=== PATIENT | male | born 1970 | race Caucasian/White ===

== ENCOUNTER 2020-09-26 07:23 | Emergency (ER) | payer SELFPAY ==
[2020-09-26] MEDS ORDERED: Ibuprofen 800 MG TAB ONE (07:52)
--- NOTE | 2020-09-26 07:53 | RAD ---
Exam: Right ankle 3 views: HISTORY: Pain COMPARISON: None FINDINGS: Multiple surgical clips in the soft tissues of the lower leg and upper ankle region. Degenerative and minimal osteoarthrosis changes of the ankle joint. No evidence for fracture, dislocation, or other significant acute osseous abnormality. IMPRESSION: No significant acute process.
--- NOTE | 2020-09-26 09:40 | ULT ---
RIGHT LOWER EXTREMITY VENOUS DUPLEX STUDY: Date; 09/26/2020 INDICATION: Right lower extremity pain and edema. FINDINGS: Deep veins of right lower extremity evaluated with ultrasound and Doppler, with color Doppler and spe ctral analysis. Deep veins of the right lower extremity show normal blood flow and compression. No evidence of deep v enous thrombosis. IMPRESSION: No evidence of right lower extremity deep venous thrombosis. POS: AGW
== END 2020-09-26 09:58 | disposition home or self-care (01) ==
LOC: ERS 07:23 → EEVIPCON 07:23 → ERS 09:58
DX: M10.9 Gout, unspecified (principal); I87.8 Other specified disorders of veins

== ENCOUNTER 2020-12-06 02:58 | Inpatient (IN) | payer SELFPAY ==
[2020-12-06] MEDS ORDERED: Lorazepam 2 MG/ML VIAL ONE (03:40)
[2020-12-06] MEDS ORDERED: Multivitamins, Adult 10 ML, Thiamine HCl 100 MG, Folic Acid 1 MG in Dextrose 5 %-0.45 %... IV SCH (04:00)
[2020-12-06 04:28] LABS: #Eosinphils 0.1 thou/uL (0.0-0.7); #Lymphocytes 2.1 thou/uL (1.20-3.40); #Monocytes 0.6 thou/uL (0.11-0.59); #Neutrophils 11.8 thou/uL (1.40-6.50); %Basophils 0.2 % (0.0-1.0); %Eosinophils 0.8 % (0.0-10.0); %Lymphocytes 14.2 % (21.0-51.0); %Monocytes 3.8 % (0.0-10.0); %Neutrophils 81.1 % (42.0-75.0); Hemoglobin 14.4 g/dL (14.0-18.0); Mean Corpuscular Hemoglobin 31.8 pg (27.0-31.0); Mean Corpuscular Volume 93.7 fL (78.0-98.0); Mean Platelet Volume 8.3 fL (7.4-10.4); Platelet Count 261 thou/uL (130-400); RBC Distribution Width 13.4 % (11.5-14.5); Red Blood Cell (RBC) Count 4.52 mill/uL (4.70-6.10); White Blood Cell (WBC) Count 14.6 thou/uL (4.8-10.8)
[2020-12-06 04:50] LABS: ALT (SGPT) Less than 7 U/L (8-55); AST (SGOT) 15 U/L (5-34); Alcohol 13 mg/dL (Less than 10); Alkaline Phosphatase 106 U/L (40-110); Anion Gap 19 mmol/L (10-20); BUN (Urea Nitrogen) 8 mg/dL (8.4-25.7); Bilirubin, Total 0.4 mg/dL (0.2-1.2); CK (CPK) 95 U/L (30-200); Calc. Creatinine Clearance 0 mL/min (70-130); Calcium 9.7 mg/dL (7.8-10.44); Carbon Dioxide 24 mmol/L (22-29); Chloride 99 mmol/L (98-107); Globulin 4.6 g/dL (2.4-3.5); Glucose 99 mg/dL (70-105); Potassium 4.8 mmol/L (3.5-5.1); Protein, Total 8.6 g/dL (6.0-8.3); Sodium 137 mmol/L (136-145)
[2020-12-06] MEDS ORDERED: Acetaminophen 500 MG TAB ONE (05:54)
[2020-12-06] MEDS ORDERED: Bacitracin 1 PK ONE (05:55)
[2020-12-06] MEDS ORDERED: Lorazepam 2 MG/ML VIAL SLOW IVP PRN (06:36)
[2020-12-06] MEDS ORDERED: chlordiazePOXIDE HCl 25 MG CAP ONE (06:40)
--- NOTE | 2020-12-06 07:27 | CT ---
PRELIMINARY REPORT/[facility]/EMERGENCY AFTER HOURS PROCEDURE: EXAM: CT Head Without Intravenous Contrast. CLINICAL HISTORY: Patient presents following a possible seizure at home. He reports that he remembers waking up to go to the bathroom. He remembers, he was laying on the kitchen floor with his roommate standing over him saying that he was "flopping all over the place." TECHNIQUE: Axial computed tomography images of the head/brain without intravenous contrast. COMPARISON: None provided. FINDINGS: BRAIN: No acute intraparenchymal hemorrhage. No mass lesion. No CT evidence for acute territorial inf arct. No midline shift or extra-axial collection. VENTRICLES: No hydrocephalus. ORBITS: The orbits are unremarkable. SINUSES AND MASTOIDS: The paranasal sinuses and mastoid air cells are clear. SOFT TISSUES: No significant facial or scalp soft tissue swelling evident. No radiopaque foreign body is seen. BONES: No acute skull fracture. IMPRESSION: No acute intracranial abnormality. ELECTRONICALLY SIGNED BY: Quincy Rios MD Dec 06, 2020 4:17:20 AM LITHOPRESS OPERATOR FINAL REPORT HEAD CT WITHOUT CONTRAST: HISTORY: Seizure at home.. COMPARISON: None. FINDINGS: Hemorrhage: No intraparenchymal hemorrhage or extra-axial hematoma. Brain parenchyma: Cortical amador-white matter differentiation is preserved. No mass effect or midline shift. Basilar cisterns are patent. Ventricular system: Ventricles and sulci are patent and symmetric. Calvarium: Intact. Sinuses and mastoid air cells: Adequate aeration. IMPRESSION: 1. This report is in agreement with initial report by [facility]. 2. No acute intracranial process. Transcribed Date/Time: 12/06/2020 7:43 AM
[2020-12-06] MEDS ORDERED: Ondansetron PF 4 MG/2 ML Vial IVP PRN (08:08)
[2020-12-06] MEDS ORDERED: Bisacodyl 10 MG SUPP PR PRN (08:08)
[2020-12-06] MEDS ORDERED: Benzonatate 100 MG CAP PO PRN (08:08)
[2020-12-06] MEDS ORDERED: Guaifenesin DM 100-10/5 ML UDCUP PO PRN (08:08)
[2020-12-06] MEDS ORDERED: cloNIDine 0.1 MG TAB PO PRN (08:08)
[2020-12-06] MEDS ORDERED: Senokot S 8.6-50 MG TAB PO PRN (08:08)
[2020-12-06] MEDS ORDERED: Loperamide HCl 2 MG CAP PO PRN (08:08)
[2020-12-06] MEDS ORDERED: Sodium Chloride 0.65% Nasal 44 ML BOT EA NARE PRN (08:08)
[2020-12-06] MEDS ORDERED: GUAIFENESIN SF SOLN 200 MG/10 ML UDCUP PO PRN (08:08)
[2020-12-06] MEDS ORDERED: Cepastat Lozenges 1 LOZ PO PRN (08:08)
[2020-12-06] MEDS ORDERED: Calcium Carbonate 500 MG ChewTAB PO PRN (08:08)
[2020-12-06] MEDS ORDERED: Loratadine 10 MG TAB PO PRN (08:08)
[2020-12-06] MEDS ORDERED: hydrALAZINE 20 MG/ML VIAL SLOW IVP PRN (08:08)
[2020-12-06] MEDS ORDERED: Ondansetron ODT 4 MG TAB PO PRN (08:08)
[2020-12-06] MEDS ORDERED: Acetaminophen 325 MG TAB PO PRN (08:08)
[2020-12-06] MEDS ORDERED: Famotidine 20 MG TAB ONE (09:03)
[2020-12-06] MEDS ORDERED: Enoxaparin Sodium 40 MG/0.4 ML SYRINGE ONE (09:03)
[2020-12-06] MEDS ORDERED: Folic Acid 1 MG TAB ONE (09:03)
[2020-12-06] MEDS ORDERED: Thiamine 100 MG TAB ONE (09:03)
[2020-12-06] MEDS: Thiamine 100 MG TAB PO SCH (09:29)
[2020-12-06] MEDS: Famotidine 20 MG TAB PO SCH ×2 (09:30→20:36)
[2020-12-06] MEDS: Folic Acid 1 MG TAB PO SCH (09:30)
[2020-12-06] MEDS: Enoxaparin Sodium 40 MG/0.4 ML SYRINGE SC SCH (09:33)
[2020-12-06] MEDS ORDERED: HYDROcodone/Acetaminophen 5/325 mg Tablet ONE (09:35)
[2020-12-06] MEDS: HYDROcodone/Acetaminophen 5/325 mg Tablet PO PRN ×2 (09:36→17:50)
[2020-12-06] MEDS ORDERED: Multivitamins, Adult 10 ML, Folic Acid 1 MG, Thiamine HCl 100 MG in Dextrose 5 %-0.45 %... IV SCH (10:00)
[2020-12-06 10:28] LABS: SARS-CoV-2 MS2 Positive; SARS-CoV-2 N Gene Negative; SARS-CoV-2 S Gene Negative; SARS-CoV-2 by NAA Not Detected (NotDetected); SARS-CoV-2 orf1ab Negative
[2020-12-06] MEDS ORDERED: Multivitamin W/ Minerals 1 TAB ONE (10:34)
[2020-12-06 10:38] VITALS: BMI 24.6
[2020-12-06] MEDS: Nicotine 21 MG PATCH TD SCH (11:25)
[2020-12-06] MEDS: Cyanocobalamin (Vitamin B-12) 1,000 MCG TAB PO SCH (11:25)
[2020-12-06] MEDS: Multivitamin W/ Minerals 1 TAB PO SCH (11:25)
--- NOTE | 2020-12-06 11:44 | PDOC.HHP ---
Hospitalist HPI - History of Present Illness Seizure History of Present Illness: Patient came to emergency room for seizure, patient reports that he went to bathroom and subsequently he remembered that he was in the kitchen floor with his roommate, as per report from his roommate he was a "flopping all over the place "patient was complaining of headache when he presented emergency room, patient has a history of heavy alcohol abuse this weekend, patient has history of alcohol abuse, he drinks 12 pack 4-5 times per week, patient also had seizures several years ago, patient also reports that he has wound over right lower extremity for long period of time, he had a vein study done but wound is not healing, he has increased amount of pain in that location, In the emergency room patient was given Librium, timolol triple antibiotic ointment, banana bag and Ativan injection, ED Course: Patient is given chlordiazepoxide, Tylenol, banana bag and Ativan VITAL SIGNS Tri Dec 06, 2020 02:58 ANATOLY Larson Catherine BP: 107/83, Pulse: 143, Resp: 18, O2 sat: 99 on (Room Air), Time: 12/06/2020 02:58. VITAL SIGNS Tri Dec 06, 2020 03:09 Hooter, TECH, Jessy Temp: 97.6 (Oral), Time: 12/06/2020 03:09. VITAL SIGNS Tri Dec 06, 2020 03:45 ANATOLY Morales Jessica BP: 118/86, MAP: 96, Pulse: 122, Resp: 18, Pain: 9, O2 sat: 99 on (Room Air), Time: 12/06/2020 03:45. VITAL SIGNS Tri Dec 06, 2020 05:00 ANATOLY Morales Jessica BP: 114/85, MAP: 94, Pulse: 104, Resp: 16, Pain: 8, O2 sat: 93 on (Room Air), Time: 12/06/2020 05:00. VITAL SIGNS Tri Dec 06, 2020 06:00 ANATOLY Morales Jessica BP: 146/96, Pulse: 112, Resp: 18, Temp: 98.0 (Oral), Pain: 6, O2 sat: 99 on (Room Air), Time: 12/06/2020 06:00. Hospitalist ROS - Review of Systems Constitutional: denies: fever, chills, sweats, weakness, malaise, other Eyes: denies: pain, vision change, conjunctivae inflammation, eyelid inflammation, redness, other ENT: denies: ear pain, ear discharge, nose pain, nose discharge, nose co ngestion, mouth pain, mouth swelling, throat pain, throat swelling, other Respiratory: denies: cough, dry, shortness of breath, hemoptysis, SOB with excertion, pleuritic pain, sputum, wheezing, other Cardiovascular: denies: chest pain, palpitations, orthopnea, paroxysmal noc. dyspnea, edema, light headedness, other Gastrointestinal: denies: nausea, vomiting, abdominal pain, diarrhea, constipation, melena, hematochezia, other Genitourinary: denies: dysuria, frequency, incontinence, hematuria, retention, other Musculoskeletal: reports: leg pain. denies: neck pain, shoulder pain, arm pain, back pain, hand pain, foot pain, other Skin: denies: rash, lesions, deny, bruising, other Neurological: reports: seizures. denies: weakness, numbness, incoordination, change in speech, confusion, other - Medication Medications: Active Medications Generic Name Dose Route Start Last Admin Trade Name Freq PRN Reason Stop Dose Admin Hydrocodone Bitart/Acetaminophen 1 tab 12/06/20 08:08 12/06/20 09:36 Hydrocodone/Acetaminophen 5/325 Mg Tablet PO 1 tab Q4H PRN Administration Moderate Pain (4-6) Cyanocobalamin 1,000 mcg 12/06/20 09:00 12/06/20 11:25 Cyanocobalamin (Vitamin B-12) 1,000 Mcg Tab PO 1,000 mcg DAILY LARRY Administration Enoxaparin Sodium 40 mg 12/06/20 09:00 12/06/20 09:33 Enoxaparin Sodium 40 Mg/0.4 Ml Syringe SC 40 mg 0900 LARRY Administration Famotidine 20 mg 12/06/20 09:00 12/06/20 09:30 Famotidine 20 Mg Tab PO 20 mg BID LARRY Administration Folic Acid 1 mg 12/06/20 09:00 12/06/20 09:30 Folic Acid 1 Mg Tab PO 1 mg DAILY LARRY Administration Multivitamins 10 ml/ Thiamine 1,011.2 mls @ 125 mls/hr 12/06/20 04:00 12/06/20 04:15 HCl 100 mg/ Folic Acid 1 mg/ IV 12/06/20 12:06 1,011.2 mls Dextrose/Sodium Chloride NOW LARRY Administration Iron/Minerals/Multivitamins 1 tab 12/06/20 09:00 12/06/20 11:25 Multivitamin W/ Minerals 1 Tab PO 1 tab DAILY LARRY Administration Nicotine 21 mg 12/06/20 09:00 12/06/20 11:25 Nicotine 21 Mg Patch TD 21 mg DAILY LARRY Administration Sodium Chloride 10 ml 12/06/20 09:00 12/06/20 09:33 Flush - Normal Saline 10 Ml Syringe IVF Not Given Q12HR LARRY Thiamine HCl 100 mg 12/06/20 09:00 12/06/20 09:29 Thiamine 100 Mg Tab PO 100 mg DAILY LARRY Administration Home medication-lisinopril Allergies No Known Drug Allergies Allergy (Unverified 12/06/20 03:41) Resuscitation Status - Order Detail: 12/06/20 08:08 Resuscitation Status Routine Resuscitation Status: FULL: Full Resuscitation Hospitalist History - Past Medical History Other Medical History: Hypertension Venous ulcer Alcohol abuse - Past Surgical History Other Surgical History: Reviewed and negative Past psychiatric history reviewed and negative - Family History Other Family History: No strong family history of premature coronary artery disease stroke or cancer - Social History Other Social History: Patient is alcoholic, he drinks 12 packs 5 times per week, he denies any smoking, he denies any illicit drug abuse - Exam General Appearance: NAD, awake alert Eye: PERRL, anicteric sclera ENT: normocephalic atraumatic, no oropharyngeal lesions Neck: supple, symmetric, no JVD, no thyromegaly Heart: RRR, no murmur, no gallops, no rubs Respiratory: CTAB, no wheezes, no rales, no ronchi Gastrointestinal: soft, non-tender, non-distended, normal bowel sounds Extremities: no cyanosis, no clubbing, no edema Extremities - other findings: Right lower extremity venous ulcer noted, surrounding erythema and tenderne Skin: normal turgor, no lesions Neurological: cranial nerve grossly intact, normal sensation to touch, no focal deficits, no new deficit Musculoskeletal: normal tone, normal strength, no muscle wasting Psychiatric: normal affect, normal behavior, A&O x 3 Hospitalist Results - Labs Result Diagrams: 12/06/20 03:50 12/06/20 03:50 Lab results: WBC 14.6 thou/uL (4.8-10.8) H 12/06/20 03:50 Hgb 14.4 g/dL (14.0-18.0) 12/06/20 03:50 Hct 42.3 % (42.0-52.0) 12/06/20 03:50 MCV 93.7 fL (78.0-98.0) 12/06/20 03:50 Plt Count 261 thou/uL (130-400) 12/06/20 03:50 Neutrophils % 81.1 % (42.0-75.0) H 12/06/20 03:50 Sodium 137 mmol/L (136-145) 12/06/20 03:50 Potassium 4.8 mmol/L (3.5-5.1) 12/06/20 03:50 Chloride 99 mmol/L (98-107) 12/06/20 03:50 Carbon Dioxide 24 mmol/L (22-29) 12/06/20 03:50 BUN 8 mg/dL (8.4-25.7) L 12/06/20 03:50 Creatinine 0.88 mg/dL (0.7-1.3) 12/06/20 03:50 Glucose 99 mg/dL (70-105) 12/06/20 03:50 Calcium 9.7 mg/dL (7.8-10.44) 12/06/20 03:50 Total Bilirubin 0.4 mg/dL (0.2-1.2) 12/06/20 03:50 AST 15 U/L (5-34) 12/06/20 03:50 ALT Less than 7 U/L (8-55) L 12/06/20 03:50 Alkaline Phosphatase 106 U/L (40-110) 12/06/20 03:50 Creatine Kinase 95 U/L (30-200) 12/06/20 03:50 Serum Total Protein 8.6 g/dL (6.0-8.3) H 12/06/20 03:50 Albumin 4.0 g/dL (3.5-5.0) 12/06/20 03:50 - EKG Interpretation EK lead EKG shows, sinus tachycardia, Rate (beats per minute): 121, with no ectopics, Conduction normal, ST segments normal, T waves, peaked, [place] normal, Clinical impression:, non-specific EKG. - Radiology Interpretation CT scan - head Status: image reviewed by me Additional Comment: No acute intracranial process Hospitalist H&P A/P - Problem (1) Alcohol withdrawal syndrome Code(s): F10.239 - ALCOHOL DEPENDENCE WITH WITHDRAWAL, UNSPECIFIED Status: Acute Qualifiers: Complication of substance-induced condition: uncomplicated Qualified Code(s): F10.230 - Alcohol dependence with withdrawal, uncomplicated (2) Seizure Code(s): R56.9 - UNSPECIFIED CONVULSIONS Status: Acute Assessment and Plan: Likely alcohol withdrawal seizure (3) Cellulitis of right lower extremity Code(s): L03.115 - CELLULITIS OF RIGHT LOWER LIMB Status: Acute (4) Alcohol abuse Code(s): F10.10 - ALCOHOL ABUSE, UNCOMPLICATED Status: Chronic (5) Hypertension Code(s): I10 - ESSENTIAL (PRIMARY) HYPERTENSION Status: Chronic Qualifiers: Hypertension type: essential hypertension Qualified Code(s): I10 - Essential (primary) hypertension - Plan Plan: Regarding alcohol withdrawal seizure consulted neurology, EEG obtained, CT brain negative, no focal deficit, will check magnesium prolactin and TSH, will monitor for any further recurrent seizure, antiepileptic medication will defer to neurology Regarding alcohol withdrawal syndrome we will monitor closely on telemetry floor and treat accordingly with the benzodiazepine, will continue with the folic acid, vitamin B12, thiamine and multivitamin, will also continue with banana bag Regarding cellulitis right lower extremity wound will consult wound care, will start empiric Rocephin and vancomycin, pain controlled with pain medication Regarding hypertension resume lisinopril DVT prophylaxis Lovenox 40 mg subcu daily GI prophylaxis Pepcid 20 mg twice daily CODE STATUS patient is full code Disposition plan based on clinical course.
[2020-12-06 11:49] LABS: Bacteria/HPF None Seen HPF (None Seen); Bilirubin Negative (Negative); Blood, Urine Negative (Negative); Clarity Clear (Clear); Glucose, Urine (Dipstick) Normal (Negative); Ketone, Urine Negative (Negative); Leukocyte Negative Leu/uL (Negative); Nitrite Negative (Negative); Protein, Urine (Dipstick) 10 mg/dL (Neg-Trace); RBC/HPF 0-3 HPF (0-3); Specific Gravity, Urine 1.007 (1.002-1.036); Squamous Epithelial None Seen HPF (0-3); Urobilinogen Normal mg/dL (Less than 2); WBC/HPF 0-3 HPF (0-3)
[2020-12-06 11:51] LABS: Urine Culture Reflex No No
[2020-12-06 12:08] LABS: Amphetamine Not Detected (NotDetected); Barbiturates Screen Not Detected (NotDetected); Benzodiazepine Screen Detected (NotDetected); Cocaine Metabolite Screen Not Detected (NotDetected); Medtox Control Line Valid? VALID (VALID); Medtox Reader # READER 4; Methadone Not Detected (NotDetected); Methamphetamine Not Detected (NotDetected); Opiate Screen Not Detected (NotDetected); Oxycodone Screen Not Detected (NotDetected); Phencyclidine (PCP) Not Detected (NotDetected); THC/Cannabinoid Screen Not Detected (NotDetected); Tricyclic Screen Not Detected (NotDetected)
--- NOTE | 2020-12-06 12:42 | CON ---
NEUROLOGY CONSULTATION DATE OF CONSULTATION: 12/06/2020 REASON FOR CONSULTATION: Seizure. HISTORY OF PRESENT ILLNESS: Mr. Curtis is a 50-year-old male with medical history significant for alcohol abuse presented to the emergency room with a seizure. Per patient he was sleeping and subsequently he remembered waking up on the kitchen floor. He has no recollection of the event, but per report from his roommate, he was flopping all over the place and he had headache afterwards. The patient does have history of heavy alcohol abuse and according to him that he had some friends over at his place, because of entertaining them he drank more than usual over the weekend until Thursday and then he was back to his baseline drinking Thursday and Thursday, which was significantly less than what he drank over the weekend. Patient has history of 1 seizure before which he has faint that may be secondary to drinking, but not sure. The patient is adopted so he does not have a good idea about the family history of seizures, but he denies any staring spells or history of seizures as a child. The patient denies focal numbness, focal paresthesias, nausea, vomiting, chest pain, abdominal pain, double vision, blurred vision, vertigo, recent illness or recent exposure with COVID. In the emergency room he was given Librium, banana bag, Ativan and admitted for further evaluation. REVIEW OF SYSTEMS: All systems reviewed and were negative, except the pertinent positives and negatives mentioned in the HPI. ALLERGIES: NO KNOWN DRUG ALLERGIES. PAST MEDICAL HISTORY: Hypertension, alcohol abuse, venous ulcer. PAST SURGICAL HISTORY: No significant past surgical history. PAST PSYCHIATRIC HISTORY: No significant past psychiatric history. FAMILY HISTORY: No strong family history of premature coronary artery disease, stroke, or cancer. SOCIAL HISTORY: The patient denies illegal drug abuse or smoking, but he does drink 12 packs 5 times a week. Active Medications Generic Name Dose Route Start Last Admin Trade Name Freq PRN Reason Stop Dose Admin Hydrocodone Bitart/Acetaminophen 1 tab 12/06/20 08:08 12/06/20 09:36 Hydrocodone/Acetaminophen 5/325 Mg Tablet PO 1 tab Q4H PRN Administration Moderate Pain (4-6) Cyanocobalamin 1,000 mcg 12/06/20 09:00 12/06/20 11:25 Cyanocobalamin (Vitamin B-12) 1,000 Mcg Tab PO 1,000 mcg DAILY LARRY Administration Enoxaparin Sodium 40 mg 12/06/20 09:00 12/06/20 09:33 Enoxaparin Sodium 40 Mg/0.4 Ml Syringe SC 40 mg 0900 LARRY Administration Famotidine 20 mg 12/06/20 09:00 12/06/20 09:30 Famotidine 20 Mg Tab PO 20 mg BID LARRY Administration Folic Acid 1 mg 12/06/20 09:00 12/06/20 09:30 Folic Acid 1 Mg Tab PO 1 mg DAILY LARRY Administration Multivitamins 10 ml/ Thiamine 1,011.2 mls @ 125 mls/hr 12/06/20 04:00 12/06/20 04:15 HCl 100 mg/ Folic Acid 1 mg/ IV 12/06/20 12:06 1,011.2 mls Dextrose/Sodium Chloride NOW LARRY Administration Iron/Minerals/Multivitamins 1 tab 12/06/20 09:00 12/06/20 11:25 Multivitamin W/ Minerals 1 Tab PO 1 tab DAILY LARRY Administration Nicotine 21 mg 12/06/20 09:00 12/06/20 11:25 Nicotine 21 Mg Patch TD 21 mg DAILY LARRY Administration Sodium Chloride 10 ml 12/06/20 09:00 12/06/20 09:33 Flush - Normal Saline 10 Ml Syringe IVF Not Given Q12HR [facility] Thiamine HCl 100 mg 12/06/20 09:00 12/06/20 09:29 Thiamine 100 Mg Tab PO 100 mg DAILY LARRY Administration Home medication-lisinopril PHYSICAL EXAMINATION: Blood pressure 107/83, pulse 143, respiratory rate 18. General Appearance: NAD, awake alert Eye: PERRL, anicteric sclera ENT: normocephalic atraumatic, no oropharyngeal lesions Neck: supple, symmetric, no JVD, no thyromegaly Heart: RRR, no murmur, no gallops, no rubs Respiratory: CTAB, no wheezes, no rales, no ronchi Gastrointestinal: soft, non-tender, non-distended, normal bowel sounds Extremities: no cyanosis, no clubbing, no edema Extremities - other findings: Right lower extremity venous ulcer noted, surrounding erythema and tenderne Skin: normal turgor, no lesions Neurological: Mental status: Patient is alert and oriented to person, place, and time. Recent and remote memory intact. Fund of knowledge is appropriate. Speech is clear. Cranial nerves 2 through 12 intact. Motor, muscle tone, and bulk are normal. Strength 5/5 bilaterally. Sensory intact. Cerebellar, finger-nose testing intact. Gait deferred due to patient's safety reasons. DATA REVIEWED: I reviewed the labs significant for leukocytosis 14.6. EKG showed sinus tachycardia with heart rate [address] scan did not reveal acute intracranial process. Lab results: WBC 14.6 thou/uL (4.8-10.8) H 12/06/20 03:50 Hgb 14.4 g/dL (14.0-18.0) 12/06/20 03:50 Hct 42.3 % (42.0-52.0) 12/06/20 03:50 MCV 93.7 fL (78.0-98.0) 12/06/20 03:50 Plt Count 261 thou/uL (130-400) 12/06/20 03:50 Neutrophils % 81.1 % (42.0-75.0) H 12/06/20 03:50 Sodium 137 mmol/L (136-145) 12/06/20 03:50 Potassium 4.8 mmol/L (3.5-5.1) 12/06/20 03:50 Chloride 99 mmol/L (98-107) 12/06/20 03:50 Carbon Dioxide 24 mmol/L (22-29) 12/06/20 03:50 BUN 8 mg/dL (8.4-25.7) L 12/06/20 03:50 Creatinine 0.88 mg/dL (0.7-1.3) 12/06/20 03:50 Glucose 99 mg/dL (70-105) 12/06/20 03:50 Calcium 9.7 mg/dL (7.8-10.44) 12/06/20 03:50 Total Bilirubin 0.4 mg/dL (0.2-1.2) 12/06/20 03:50 AST 15 U/L (5-34) 12/06/20 03:50 ALT Less than 7 U/L (8-55) L 12/06/20 03:50 Alkaline Phosphatase 106 U/L (40-110) 12/06/20 03:50 Creatine Kinase 95 U/L (30-200) 12/06/20 03:50 Serum Total Protein 8.6 g/dL (6.0-8.3) H 12/06/20 03:50 Albumin 4.0 g/dL (3.5-5.0) 12/06/20 03:50 - EKG Interpretation EK lead EKG shows, sinus tachycardia, Rate (beats per minute): 121, with no ectopics, Conduction normal, ST segments normal, T waves, peaked, [place] normal, Clinical impression:, non-specific EKG. - Radiology Interpretation CT scan - head Status: image reviewed by me Additional Comment: No acute intracranial process ASSESSMENT AND PLAN: (1) Alcohol withdrawal syndrome Code(s): F10.239 - ALCOHOL DEPENDENCE WITH WITHDRAWAL, UNSPECIFIED Status: Acute Qualifiers: Complication of substance-induced condition: uncomplicated Qualified Code(s): F10.230 - Alcohol dependence with withdrawal, uncomplicated (2) Seizure Code(s): R56.9 - UNSPECIFIED CONVULSIONS Status: Acute Assessment and Plan: Likely alcohol withdrawal seizure (3) Cellulitis of right lower extremity Code(s): L03.115 - CELLULITIS OF RIGHT LOWER LIMB Status: Acute (4) Alcohol abuse Code(s): F10.10 - ALCOHOL ABUSE, UNCOMPLICATED Status: Chronic (5) Hypertension Code(s): I10 - ESSENTIAL (PRIMARY) HYPERTENSION Status: Chronic Qualifiers: Hypertension type: essential hypertension Qualified Code(s): I10 - Essential (primary) hypertension Mr. Vic Curtis is a 50-year-old male who was admitted for breakthrough seizure. The differential diagnosis includes alcohol withdrawal versus seizures disorder. We will schedule him for video EEG to see if there is any evidence of interictal epileptiform abnormalities and MRI of the brain to evaluate for seizure focus. If the above testing is negative, then we will not start him on any antiepileptic medications. Neuro-checks every 4 hours. Observe seizure precautions. Ativan 2 mg IV for seizure greater than 2 minutes. CIWA protocol. PT/OT/speech, continue medical management per primary team. We will continue to follow. Further recommendations will depend on the results of the testing. Thank you for the consult. Job ID: [id number] MTDD
--- NOTE | 2020-12-06 13:01 | PDOC.EEG ---
Neurology EEG Report - Report Report: This EEG was performed using 24 channel Waze video EEG machine with 24 disc electrodes. This was an extended 2 hours 7 minutes of inpatient video EEG recording. Digital analysis of the EEG was done for spike and seizure detection which revealed no abnormalities. Background: There is a nonsustained posterior background rhythm of 8.5-9 Hz. The background rhythm attenuates with eye opening and enhances with eye closure. Hyperventilation: Not performed. Photic Stimulation: No significant response. Sleep: Drowsiness is observed . EEG Diagnosis: Normal awake and drowsy EEG.
--- NOTE | 2020-12-06 13:37 | MRI ---
Exam: Brain MRI without contrast HISTORY: New-onset seizure this morning. Patient sonographic imaging and unresponsive, x5 minutes COMPARISON: None FINDINGS: Calvarial marrow signal intensity: Appropriate T1 signal Gradient echo sequence: No hemorrhage Brain parenchyma: No mass, mass effect or midline shift. Brain volume, age-appropriate. No evidence o f mesial temporal sclerosis. Cortical amador-white matter differentiation: Preserved Restricted diffusion: Central arterial flow voids are maintained. Absent restricted diffusion White matter signal intensities:Minimal scattered T2, FLAIR white matter hyperintensities due to conductor/brakeman marisabel small vessel ischemic changes Sinuses: Minimal paranasal sinus mucosal thickening IMPRESSION: 1. Absent restricted diffusion. No acute infarct 2. No evidence of mesial temporal sclerosis. No acute intracranial process.
[2020-12-06] MEDS ORDERED: Vancomycin HCl 1.75 GM in Sodium Chloride 0.9% 500 ML IVPB SCH (14:00)
[2020-12-06] MEDS ORDERED: cefTRIAXone\\ROCEPHIN 1 GM VIAL ONE (14:24)
[2020-12-06] MEDS: cefTRIAXone\\ROCEPHIN 1 GM in Sodium Chloride 0.9% 100 ML IVPB SCH (14:44)
[2020-12-06] MEDS: Vancomycin HCl 1.75 GM in Sodium Chloride 0.9% 500 ML IVPB SCH (18:34)
[2020-12-06] MEDS: Morphine 2 MG/ML VIAL SLOW IVP PRN (18:34)
[2020-12-07] MEDS: HYDROcodone/Acetaminophen 5/325 mg Tablet PO PRN ×3 (01:31→18:46)
[2020-12-07 04:57] LABS: #Eosinphils 0.2 thou/uL (0.0-0.7); #Lymphocytes 1.9 thou/uL (1.20-3.40); #Monocytes 0.5 thou/uL (0.11-0.59); #Neutrophils 4.4 thou/uL (1.40-6.50); %Basophils 0.4 % (0.0-1.0); %Eosinophils 3.5 % (0.0-10.0); %Lymphocytes 26.7 % (21.0-51.0); %Monocytes 6.4 % (0.0-10.0); Hemoglobin 12.5 g/dL (14.0-18.0); Mean Corpuscular Hemoglobin 30.7 pg (27.0-31.0); Mean Corpuscular Volume 95.7 fL (78.0-98.0); Mean Platelet Volume 8.1 fL (7.4-10.4); Platelet Count 194 thou/uL (130-400); RBC Distribution Width 13.6 % (11.5-14.5); Red Blood Cell (RBC) Count 4.07 mill/uL (4.70-6.10); White Blood Cell (WBC) Count 6.9 thou/uL (4.8-10.8)
[2020-12-07 05:00] LABS: ALT (SGPT) Less than 7 U/L (8-55); AST (SGOT) 12 U/L (5-34); Albumin 3.4 g/dL (3.5-5.0); Alkaline Phosphatase 90 U/L (40-110); Anion Gap 14 mmol/L (10-20); BUN (Urea Nitrogen) 13 mg/dL (8.4-25.7); Bilirubin, Total 0.2 mg/dL (0.2-1.2); Calc. Creatinine Clearance 128 mL/min (70-130); Carbon Dioxide 26 mmol/L (22-29); Chloride 102 mmol/L (98-107); Globulin 3.9 g/dL (2.4-3.5); Glucose 102 mg/dL (70-105); Potassium 4.4 mmol/L (3.5-5.1); Protein, Total 7.3 g/dL (6.0-8.3); Sodium 138 mmol/L (136-145)
[2020-12-07] MEDS: Morphine 2 MG/ML VIAL SLOW IVP PRN ×2 (06:38→11:14)
[2020-12-07] MEDS: Vancomycin HCl 1.75 GM in Sodium Chloride 0.9% 500 ML IVPB SCH ×2 (06:40→17:19)
[2020-12-07] MEDS: Famotidine 20 MG TAB PO SCH ×2 (08:46→21:45)
[2020-12-07] MEDS: Folic Acid 1 MG TAB PO SCH (08:46)
[2020-12-07] MEDS: Nicotine 21 MG PATCH TD SCH (08:46)
[2020-12-07] MEDS: Lisinopril 20 MG TAB PO SCH (08:46)
[2020-12-07] MEDS: Multivitamin W/ Minerals 1 TAB PO SCH (08:46)
[2020-12-07] MEDS: Cyanocobalamin (Vitamin B-12) 1,000 MCG TAB PO SCH (08:46)
[2020-12-07] MEDS: Thiamine 100 MG TAB PO SCH (08:46)
[2020-12-07] MEDS: Enoxaparin Sodium 40 MG/0.4 ML SYRINGE SC SCH (08:47)
--- NOTE | 2020-12-07 10:29 | PDOC.HOSPP ---
- Subjective Encounter Date: 12/07/20 Encounter Time: 07:30 Subjective: Patient seen and examined bedside today, patient is feeling much better, he does not have any further seizure, Patient reports that he wants to talk to social work because he wanted to go for alcohol rehabilitation program, - Objective Vital Signs & Weight: Vital Signs (12 hours) Temp Pulse Resp BP BP BP Pulse Ox 12/07/20 08:46 160/103 H 12/07/20 08:00 98 F 90 15 160/103 H 100 12/07/20 04:58 98.5 F 93 16 136/105 H 136/105 H 98 12/07/20 01:35 136/94 H 12/07/20 01:00 97.8 F 89 16 136/94 H 98 Weight Weight 192 lb 0.362 oz I&O: 12/06/20 12/07/20 12/08/20 06:59 06:59 06:59 Intake Total 480 240 Balance 480 240 Result Diagrams: 12/07/20 04:14 12/07/20 04:14 Additional Labs: EEG unremarkable Radiology Reviewed by me: Yes (MRI normal) EKG Reviewed by me: Yes (Normal sinus rhythm) Hospitalist ROS - Review of Systems Constitutional: denies: fever, chills, sweats, weakness, malaise, other ENT: denies: ear pain, ear discharge, nose pain, nose discharge, nose congestion, mouth pain, mouth swelling, throat pain, throat swelling, other Respiratory: denies: cough, dry, shortness of breath, hemoptysis, SOB with excertion, pleuritic pain, sputum, wheezing, other Cardiovascular: denies: chest pain, palpitations, orthopnea, paroxysmal noc. dyspnea, edema, light headedness, other Gastrointestinal: denies: nausea, vomiting, abdominal pain, diarrhea, constipation, melena, hematochezia, other Genitourinary: denies: dysuria, frequency, incontinence, hematuria, retention, other Musculoskeletal: denies: neck pain, shoulder pain, arm pain, back pain, hand pain, leg pain, foot pain, other Skin: denies: rash, lesions, deny, bruising, other - Medication Medications: Active Medications Generic Name Dose Route Start Last Admin Trade Name Freq PRN Reason Stop Dose Admin Hydrocodone Bitart/Acetaminophen 1 tab 12/06/20 08:08 12/07/20 01:31 Hydrocodone/Acetaminophen 5/325 Mg Tablet PO 1 tab Q4H PRN Administration Moderate Pain (4-6) Cyanocobalamin 1,000 mcg 12/06/20 09:00 12/07/20 08:46 Cyanocobalamin (Vitamin B-12) 1,000 Mcg Tab PO 1,000 mcg DAILY LARRY Administration Enoxaparin Sodium 40 mg 12/06/20 09:00 12/07/20 08:47 Enoxaparin Sodium 40 Mg/0.4 Ml Syringe SC 40 mg 0900 LARRY Administration Famotidine 20 mg 12/06/20 09:00 12/07/20 08:46 Famotidine 20 Mg Tab PO 20 mg BID LARRY Administration Folic Acid 1 mg 12/06/20 09:00 12/07/20 08:46 Folic Acid 1 Mg Tab PO 1 mg DAILY LARRY Administration Ceftriaxone Sodium 1 gm/ 100 mls @ 200 mls/hr 12/06/20 14:00 12/06/20 14:44 Sodium Chloride IVPB 100 mls Q24HR LARRY Administration Vancomycin HCl 1.75 gm/ Sodium 500 mls @ 250 mls/hr 12/06/20 18:00 12/07/20 06:40 Chloride IVPB 500 mls 0600,1800 LARRY Administration Iron/Minerals/Multivitamins 1 tab 12/06/20 09:00 12/07/20 08:46 Multivitamin W/ Minerals 1 Tab PO 1 tab DAILY LARRY Administration Lisinopril 20 mg 12/07/20 09:00 12/07/20 08:46 Lisinopril 20 Mg Tab PO 20 mg DAILY LARRY Administration Morphine Sulfate 2 mg 12/06/20 11:50 12/07/20 06:38 Morphine 2 Mg/Ml Vial SLOW IVP 2 mg Q4H PRN Administration Pain Nicotine 21 mg 12/06/20 09:00 12/07/20 08:46 Nicotine 21 Mg Patch TD 21 mg DAILY LARRY Administration Sodium Chloride 10 ml 12/06/20 09:00 12/07/20 08:47 Flush - Normal Saline 10 Ml Syringe IVF 10 ml Q12HR LARRY Administration Thiamine HCl 100 mg 12/06/20 09:00 12/07/20 08:46 Thiamine 100 Mg Tab PO 100 mg DAILY LARRY Administration - Exam General Appearance: NAD, awake alert Eye: PERRL, anicteric sclera ENT: normocephalic atraumatic, no oropharyngeal lesions Neck: supple, symmetric, no JVD, no thyromegaly Heart: RRR, no murmur, no gallops, no rubs Respiratory: no wheezes, no rales, no ronchi Gastrointestinal: soft, non-tender, non-distended, normal bowel sounds Extremities: no cyanosis, no clubbing Extremities - other findings: Right lower extremity venous ulcer noted, varicosity noted, Skin: normal turgor, no lesions Neurological: no focal deficits Musculoskeletal: normal tone, normal strength Psychiatric: normal affect, normal behavior, A&O x 3 Hosp A/P (1) Alcohol withdrawal syndrome Code(s): F10.239 - ALCOHOL DEPENDENCE WITH WITHDRAWAL, UNSPECIFIED Status: Acute Qualifiers: Complication of substance-induced condition: uncomplicated Qualified Code(s): F10.230 - Alcohol dependence with withdrawal, uncomplicated (2) Seizure Code(s): R56.9 - UNSPECIFIED CONVULSIONS Status: Acute (3) Cellulitis of right lower extremity Code(s): L03.115 - CELLULITIS OF RIGHT LOWER LIMB Status: Acute (4) Alcohol abuse Code(s): F10.10 - ALCOHOL ABUSE, UNCOMPLICATED Status: Chronic (5) Hypertension Code(s): I10 - ESSENTIAL (PRIMARY) HYPERTENSION Status: Chronic Qualifiers: Hypertension type: essential hypertension Qualified Code(s): I10 - Essential (primary) hypertension (6) Varicose vein of leg Code(s): I83.90 - ASYMPTOMATIC VARICOSE VEINS OF UNSPECIFIED LOWER EXTREMITY Status: Acute Qualifiers: Varicose vein complication: ulcer Laterality: right Lower extremity ulceration location: other part of lower leg Non-pressure ulcer stage: with fat layer exposed Qualified Code(s): I83.018 - Varicose veins of right lower extremity with ulcer other part of lower leg; L97.812 - Non-pressure chronic ulcer of other part of right lower leg with fat layer exposed - Plan old records reviewed/req, continue antibiotics, DVT proph w/lovenox Discontinue telemetry and transfer to medical floor if bed available Continue Rocephin and vancomycin Continue wound care Consult manager case management for alcohol rehabilitation program Monitor clinical response regarding cellulitis of right lower extremity, expecting his discharge next 24 to 48 hours. Medication reviewed and continue provide symptomatic and supportive care, pain control,
[2020-12-07] MEDS: cefTRIAXone\\ROCEPHIN 1 GM in Sodium Chloride 0.9% 100 ML IVPB SCH (14:14)
[2020-12-08 01:31] LABS: Vancomycin, Trough 23.7 ug/mL
[2020-12-08 05:28] LABS: Vancomycin, Trough 18.6 ug/mL
[2020-12-08] MEDS: Vancomycin HCl 1.75 GM in Sodium Chloride 0.9% 500 ML IVPB SCH ×2 (05:51→18:30)
[2020-12-08] MEDS: HYDROcodone/Acetaminophen 5/325 mg Tablet PO PRN ×2 (08:38→18:28)
[2020-12-08] MEDS: Multivitamin W/ Minerals 1 TAB PO SCH (08:39)
[2020-12-08] MEDS: Thiamine 100 MG TAB PO SCH (08:39)
[2020-12-08] MEDS: Cyanocobalamin (Vitamin B-12) 1,000 MCG TAB PO SCH (08:39)
[2020-12-08] MEDS: Lisinopril 20 MG TAB PO SCH (08:39)
[2020-12-08] MEDS: Famotidine 20 MG TAB PO SCH ×2 (08:39→20:41)
[2020-12-08] MEDS: Enoxaparin Sodium 40 MG/0.4 ML SYRINGE SC SCH (08:39)
[2020-12-08] MEDS: Folic Acid 1 MG TAB PO SCH (08:39)
[2020-12-08] MEDS: Nicotine 21 MG PATCH TD SCH (08:40)
--- NOTE | 2020-12-08 10:06 | PDOC.HOSPP ---
- Subjective Encounter Date: 12/08/20 Encounter Time: 07:45 Subjective: Patient seen and examined. No new complaints. No overnight events - Objective Vital Signs & Weight: Vital Signs (12 hours) Temp Pulse Resp BP BP BP Pulse Ox 12/08/20 08:39 150/90 H 12/08/20 07:07 97.9 F 65 18 150/90 H 97 12/08/20 03:28 97.9 F 69 16 164/102 H 98 12/07/20 23:32 98.3 F 81 16 180/115 H 97 Weight Admit Weight 192 lb 0.362 oz Weight 192 lb 0.362 oz I&O: 12/07/20 12/08/20 12/09/20 06:59 06:59 06:59 Intake Total 480 1140 Balance 480 1140 Result Diagrams: 12/07/20 04:14 12/07/20 04:14 Hospitalist ROS - Review of Systems Constitutional: denies: fever, chills, sweats, weakness, malaise, other ENT: denies: ear pain, ear discharge, nose pain, nose discharge, nose congestion, mouth pain, mouth swelling, throat pain, throat swelling, other Respiratory: denies: cough, dry, shortness of breath, hemoptysis, SOB with exce rtion, pleuritic pain, sputum, wheezing, other Cardiovascular: denies: chest pain, palpitations, orthopnea, paroxysmal noc. dyspnea, edema, light headedness, other Gastrointestinal: denies: nausea, vomiting, abdominal pain, diarrhea, constipation, melena, hematochezia, other Genitourinary: denies: dysuria, frequency, incontinence, hematuria, retention, other Musculoskeletal: reports: leg pain. denies: neck pain, shoulder pain, arm pain, back pain, hand pain, foot pain, other - Medication Medications: Active Medications Generic Name Dose Route Start Last Admin Trade Name Freq PRN Reason Stop Dose Admin Hydrocodone Bitart/Acetaminophen 1 tab 12/06/20 08:08 12/08/20 08:38 Hydrocodone/Acetaminophen 5/325 Mg Tablet PO 1 tab Q4H PRN Administration Moderate Pain (4-6) Cyanocobalamin 1,000 mcg 12/06/20 09:00 12/08/20 08:39 Cyanocobalamin (Vitamin B-12) 1,000 Mcg Tab PO 1,000 mcg DAILY LARRY Administration Enoxaparin Sodium 40 mg 12/06/20 09:00 12/08/20 08:39 Enoxaparin Sodium 40 Mg/0.4 Ml Syringe SC 40 mg 0900 LARRY Administration Famotidine 20 mg 12/06/20 09:00 12/08/20 08:39 Famotidine 20 Mg Tab PO 20 mg BID LARRY Administration Folic Acid 1 mg 12/06/20 09:00 12/08/20 08:39 Folic Acid 1 Mg Tab PO 1 mg DAILY LARRY Administration Ceftriaxone Sodium 1 gm/ 100 mls @ 200 mls/hr 12/06/20 14:00 12/07/20 14:14 Sodium Chloride IVPB 100 mls Q24HR LARRY Administration Vancomycin HCl 1.75 gm/ Sodium 500 mls @ 250 mls/hr 12/06/20 18:00 12/08/20 05:51 Chloride IVPB 500 mls 0600,1800 LARRY Administration Iron/Minerals/Multivitamins 1 tab 12/06/20 09:00 12/08/20 08:39 Multivitamin W/ Minerals 1 Tab PO 1 tab DAILY LARRY Administration Lisinopril 20 mg 12/07/20 09:00 12/08/20 08:39 Lisinopril 20 Mg Tab PO 20 mg DAILY LARRY Administration Morphine Sulfate 2 mg 12/06/20 11:50 12/07/20 11:14 Morphine 2 Mg/Ml Vial SLOW IVP 2 mg Q4H PRN Administration Pain Nicotine 21 mg 12/06/20 09:00 12/08/20 08:40 Nicotine 21 Mg Patch TD 21 mg DAILY LARRY Administration Sodium Chloride 10 ml 12/06/20 09:00 12/08/20 08:40 Flush - Normal Saline 10 Ml Syringe IVF 10 ml Q12HR LARRY Administration Thiamine HCl 100 mg 12/06/20 09:00 12/08/20 08:39 Thiamine 100 Mg Tab PO 100 mg DAILY LARRY Administration - Exam General Appearance: NAD, awake alert Eye: PERRL, anicteric sclera ENT: normocephalic atraumatic, no oropharyngeal lesions Neck: supple, symmetric, no JVD, no thyromegaly Heart: RRR, no murmur, no gallops, no rubs Respiratory: no wheezes, no rales, no ronchi Gastrointestinal: soft, non-tender, non-distended, normal bowel sounds Extremities - other findings: Right lower extremity wound venous ulcer noted, cellulitis improving Skin: normal turgor, no lesions Neurological: no focal deficits Musculoskeletal: normal tone, normal strength Psychiatric: normal affect, normal behavior Hosp A/P (1) Cellulitis of right lower extremity Code(s): L03.115 - CELLULITIS OF RIGHT LOWER LIMB Status: Acute (2) Alcohol withdrawal syndrome Code(s): F10.239 - ALCOHOL DEPENDENCE WITH WITHDRAWAL, UNSPECIFIED Status: Resolved Qualifiers: Complication of substance-induced condition: uncomplicated Qualified Code(s): F10.230 - Alcohol dependence with withdrawal, uncomplicated (3) Seizure Code(s): R56.9 - UNSPECIFIED CONVULSIONS Status: Resolved (4) Alcohol abuse Code(s): F10.10 - ALCOHOL ABUSE, UNCOMPLICATED Status: Chronic (5) Hypertension Code(s): I10 - ESSENTIAL (PRIMARY) HYPERTENSION Status: Chronic Qualifiers: Hypertension type: essential hypertension Qualified Code(s): I10 - Essential (primary) hypertension (6) Varicose vein of leg Code(s): I83.90 - ASYMPTOMATIC VARICOSE VEINS OF UNSPECIFIED LOWER EXTREMITY Status: Acute Qualifiers: Varicose vein complication: ulcer Laterality: right Lower extremity ulceration location: other part of lower leg Non-pressure ulcer stage: with fat layer exposed Qualified Code(s): I83.018 - Varicose veins of right lower e xtremity with ulcer other part of lower leg; L97.812 - Non-pressure chronic ulcer of other part of right lower leg with fat layer exposed - Plan old records reviewed/req, continue antibiotics, DVT proph w/lovenox Continue Rocephin and vancomycin, follow-up on wound culture result, based on wound culture result will consider changing to oral antibiotic therapy upon dis charge Patient's blood pressure is high so we will add amlodipine 10 mg p.o. daily, Counseling provided to continue to avoid alcohol abuse, Medication reviewed and continue provide symptomatic and supportive care, overall pain controlled, Expecting discharge in next 24 to 48 hours.
[2020-12-08] MEDS ORDERED: Amlodipine 10 MG TAB PO SCH (10:15)
--- NOTE | 2020-12-08 13:52 | EKG ---
Test Reason : EMERGENCY Blood Pressure : / mmHG Vent. Rate : 121 BPM Atrial Rate : 121 BPM P-R Int : 128 ms QRS Dur : 068 ms QT Int : 302 ms P-R-T Axes : 000 000 064 degrees QTc Int : 428 ms Sinus tachycardia Otherwise normal ECG Confirmed by ANDRESSA ALANIZ ([id number]), assistant film editor JONATHAN TRUJILLO ([id number]) on 12/08/2020 1:51:54 PM Referred By: Confirmed By:ANDRESSA ALANIZ
[2020-12-08] MEDS: cefTRIAXone\\ROCEPHIN 1 GM in Sodium Chloride 0.9% 100 ML IVPB SCH (14:54)
[2020-12-08] MEDS: Zolpidem Tartrate 5 MG TAB PO PRN (20:42)
[2020-12-09] MEDS: Vancomycin HCl 1.75 GM in Sodium Chloride 0.9% 500 ML IVPB SCH ×2 (05:57→19:12)
[2020-12-09] MEDS: HYDROcodone/Acetaminophen 5/325 mg Tablet PO PRN ×2 (06:01→17:42)
[2020-12-09] MEDS: Enoxaparin Sodium 40 MG/0.4 ML SYRINGE SC SCH (08:31)
[2020-12-09] MEDS: Nicotine 21 MG PATCH TD SCH (08:31)
[2020-12-09] MEDS: Famotidine 20 MG TAB PO SCH ×2 (08:32→20:17)
[2020-12-09] MEDS: Lisinopril 20 MG TAB PO SCH (08:32)
[2020-12-09] MEDS: Multivitamin W/ Minerals 1 TAB PO SCH (08:32)
[2020-12-09] MEDS: Folic Acid 1 MG TAB PO SCH (08:32)
[2020-12-09] MEDS: Thiamine 100 MG TAB PO SCH (08:32)
[2020-12-09] MEDS: Cyanocobalamin (Vitamin B-12) 1,000 MCG TAB PO SCH (08:32)
[2020-12-09] MEDS: Amlodipine 10 MG TAB PO SCH (08:32)
--- NOTE | 2020-12-09 10:39 | PDOC.HOSPP ---
- Subjective Encounter Date: 12/09/20 Encounter Time: 08:00 Subjective: Patient seen and examined. No new complaints. No overnight events - Objective Vital Signs & Weight: Vital Signs (12 hours) Temp Pulse Resp BP BP BP BP 12/09/20 08:32 70 153/88 H 12/09/20 07:42 98.3 F 68 18 153/88 H 12/09/20 03:43 97.6 F 70 18 154/86 H 12/08/20 23:33 98.1 F 66 18 132/83 Pulse Ox 12/09/20 08:32 12/09/20 07:42 100 12/09/20 03:43 97 12/08/20 23:33 97 Weight Admit Weight 192 lb 0.362 oz Weight 192 lb 0.362 oz I&O: 12/08/20 12/09/20 12/10/20 06:59 06:59 06:59 Intake Total 1140 3050 Balance 1140 3050 Result Diagrams: 12/07/20 04:14 12/07/20 04:14 Hospitalist ROS - Review of Systems ENT: denies: ear pain, ear discharge, nose pain, nose discharge, nose congestion, mouth pain, mouth swelling, throat pain, throat swelling, other Respiratory: denies: cough, dry, shortness of breath, hemoptysis, SOB with excertion, pleuritic pain, sputum, wheezing, other Cardiovascular: denies: chest pain, palpitations, orthopnea, paroxysmal noc. dyspnea, edema, light headedness, other Gastrointestinal: denies: nausea, vomiting, abdominal pain, diarrhea, constipation, melena, hematochezia, other Genitourinary: denies: dysuria, frequency, incontinence, hematuria, retention, other Musculoskeletal: denies: neck pain, shoulder pain, arm pain, back pain, hand pain, leg pain, foot pain, other - Medication Medications: Active Medications Generic Name Dose Route Start Last Admin Trade Name Freq PRN Reason Stop Dose Admin Hydrocodone Bitart/Acetaminophen 1 tab 12/06/20 08:08 12/09/20 06:01 Hydrocodone/Acetaminophen 5/325 Mg Tablet PO 1 tab Q4H PRN Administration Moderate Pain (4-6) Amlodipine Besylate 10 mg 12/09/20 09:00 12/09/20 08:32 Amlodipine 10 Mg Tab PO 10 mg DAILY LARRY Administration Cyanocobalamin 1,000 mcg 12/06/20 09:00 12/09/20 08:32 Cyanocobalamin (Vitamin B-12) 1,000 Mcg Tab PO 1,000 mcg DAILY LARRY Administration Enoxaparin Sodium 40 mg 12/06/20 09:00 12/09/20 08:31 Enoxaparin Sodium 40 Mg/0.4 Ml Syringe SC 40 mg 0900 LARRY Administration Famotidine 20 mg 12/06/20 09:00 12/09/20 08:32 Famotidine 20 Mg Tab PO 20 mg BID LARRY Administration Folic Acid 1 mg 12/06/20 09:00 12/09/20 08:32 Folic Acid 1 Mg Tab PO 1 mg DAILY LARRY Administration Ceftriaxone Sodium 1 gm/ 100 mls @ 200 mls/hr 12/06/20 14:00 12/08/20 14:54 Sodium Chloride IVPB 100 mls Q24HR LARRY Administration Vancomycin HCl 1.75 gm/ Sodium 500 mls @ 250 mls/hr 12/06/20 18:00 12/09/20 05:57 Chloride IVPB 500 mls 0600,1800 LARRY Administration Iron/Minerals/Multivitamins 1 tab 12/06/20 09:00 12/09/20 08:32 Multivitamin W/ Minerals 1 Tab PO 1 tab DAILY LARRY Administration Lisinopril 20 mg 12/07/20 09:00 12/09/20 08:32 Lisinopril 20 Mg Tab PO 20 mg DAILY LARRY Administration Morphine Sulfate 2 mg 12/06/20 11:50 12/07/20 11:14 Morphine 2 Mg/Ml Vial SLOW IVP 2 mg Q4H PRN Administration Pain Nicotine 21 mg 12/06/20 09:00 12/09/20 08:31 Nicotine 21 Mg Patch TD 21 mg DAILY LARRY Administration Sodium Chloride 10 ml 12/06/20 09:00 12/09/20 08:33 Flush - Normal Saline 10 Ml Syringe IVF 10 ml Q12HR LARRY Administration Thiamine HCl 100 mg 12/06/20 09:00 12/09/20 08:32 Thiamine 100 Mg Tab PO 100 mg DAILY LARRY Administration Zolpidem Tartrate 5 mg 12/06/20 08:08 12/08/20 20:42 Zolpidem Tartrate 5 Mg Tab PO 5 mg HSPRN PRN Administration Insomnia - Exam General Appearance: NAD, awake alert Eye: PERRL, anicteric sclera ENT: normocephalic atraumatic, no oropharyngeal lesions Neck: supple, symmetric, no JVD, no thyromegaly Heart: RRR, no murmur, no gallops, no rubs Respiratory: no wheezes, no rales, no ronchi Gastrointestinal: soft, non-tender, non-distended, normal bowel sounds Extremities: no cyanosis, no clubbing Extremities - other findings: Right lower extremity cellulitis and wound improving, Skin: normal turgor, no lesions Neurological: no focal deficits Musculoskeletal: normal tone, normal strength Psychiatric: normal affect, normal behavior Hosp A/P (1) Cellulitis of right lower extremity Code(s): L03.115 - CELLULITIS OF RIGHT LOWER LIMB Status: Acute (2) Alcohol withdrawal syndrome Code(s): F10.239 - ALCOHOL DEPENDENCE WITH WITHDRAWAL, UNSPECIFIED Status: Resolved Qualifiers: Complication of substance-induced condition: uncomplicated Qualified Code(s): F10.230 - Alcohol dependence with withdrawal, uncomplicated (3) Seizure Code(s): R56.9 - UNSPECIFIED CONVULSIONS Status: Resolved (4) Alcohol abuse Code(s): F10.10 - ALCOHOL ABUSE, UNCOMPLICATED Status: Chronic (5) Hypertension Code(s): I10 - ESSENTIAL (PRIMARY) HYPERTENSION Status: Chronic Qualifiers: Hypertension type: essential hypertension Qualified Code(s): I10 - Essential (primary) hypertension (6) Varicose vein of leg Code(s): I83.90 - ASYMPTOMATIC VARICOSE VEINS OF UNSPECIFIED LOWER EXTREMITY Status: Acute Qualifiers: Varicose vein complication: ulcer Laterality: right Lower extremity ulceration location: other part of lower leg Non-pressure ulcer stage: with fat layer exposed Qualified Code(s): I83.018 - Varicose veins of right lower extremity with ulcer other part of lower leg; L97.812 - Non-pressure chronic ulcer of other part of right lower leg with fat layer exposed - Plan old records reviewed/req, continue antibiotics, adoption social worker, DVT proph w/lovenox Based on culture result we will consider changing to Keflex 500 mg p.o. every 6 hourly for 7 more days, Patient is overall medically stable, Patient will need alcohol rehabilitation program after discharge as an outpatient basis voluntarily Unfortunately this patient has no place to go and he is concerned about going on the street in this cold weather, will ask continuous pillowcase cutter to help him with discharge placement, if safe discharge place arranged and will possible consider discharging him today or tomorrow
[2020-12-09] MEDS: cefTRIAXone\\ROCEPHIN 1 GM in Sodium Chloride 0.9% 100 ML IVPB SCH (14:32)
[2020-12-09 18:21] LABS: Vancomycin, Trough 19.2 ug/mL
[2020-12-09] MEDS: Zolpidem Tartrate 5 MG TAB PO PRN (20:17)
[2020-12-10] MEDS: Vancomycin HCl 1.75 GM in Sodium Chloride 0.9% 500 ML IVPB SCH ×2 (06:54→20:32)
[2020-12-10] MEDS: Amlodipine 10 MG TAB PO SCH (09:10)
[2020-12-10] MEDS: Thiamine 100 MG TAB PO SCH (09:10)
[2020-12-10] MEDS: Enoxaparin Sodium 40 MG/0.4 ML SYRINGE SC SCH (09:10)
[2020-12-10] MEDS: Multivitamin W/ Minerals 1 TAB PO SCH (09:10)
[2020-12-10] MEDS: Famotidine 20 MG TAB PO SCH ×2 (09:10→20:32)
[2020-12-10] MEDS: Folic Acid 1 MG TAB PO SCH (09:10)
[2020-12-10] MEDS: Lisinopril 20 MG TAB PO SCH (09:10)
[2020-12-10] MEDS: Cyanocobalamin (Vitamin B-12) 1,000 MCG TAB PO SCH (09:10)
[2020-12-10] MEDS: Nicotine 21 MG PATCH TD SCH (09:10)
--- NOTE | 2020-12-10 11:20 | PDOC.DS.DS ---
Provider - Provider Date of Admission: 12/06/20 05:53 Date of Discharge: 12/10/20 Admitting Provider: Rasheed Beck MD Consultations: Neurology Primary Care Physician: NO PCP PROVIDER Course - Hospital Course Hospital Course: History on admission- Patient came to emergency room for seizure, patient reports that he went to bathroom and subsequently he remembered that he was in the kitchen floor with his roommate, as per report from his roommate he was a "flopping all over the place "patient was complaining of headache when he presented emergency room, patient has a history of heavy alcohol abuse this weekend, patient has history of alcohol abuse, he drinks 12 pack 4-5 times per week, patient also had seizures several years ago, patient also reports that he has wound over right lower extremity for long period of time, he had a vein st udy done but wound is not healing, he has increased amount of pain in that location, In the emergency room patient was given Librium, Tylenol triple antibiotic ointment, banana bag and Ativan injection, Patient was admitted to the hospital for alcohol withdrawal seizure, patient was evaluated by neurology, CT brain was negative, subsequently MRI brain also came back normal, EEG was unremarkable, neurology recommended not to start any antiepileptic medication Patient was treated for alcohol withdrawal syndrome and subsequently he was transferred from telemetry floor to medical floor. On admission patient was also having cellulitis of right lower extremity with wound from venous insufficiency and varicose vein, wound care team evaluated this patient, culture grew MSSA, initially patient was given Rocephin and vancomycin and on discharge be changed to Keflex. Patient has a discharge challenge issue and that is why we consulted manager of case management to assist him discharge planning. All new medication prescription given to him. Overall patient is medically stable for discharge. Resuscitation Status: 12/06/20 08:08 Resuscitation Status Routine Resuscitation Status: FULL: Full Resuscitation - Labs Lab Results: 12/07/20 04:14 12/07/20 04:14 Microbiology - Entire Visit 12/06/20 18:52 Leg - Right Leg Bacterial Culture - Final Staphylococcus aureus Beta-hemolytic strep group A - Physical Exam Vitals: Vital Signs (12 hours) Temp Pulse Resp BP BP BP Pulse Ox 12/10/20 09:10 70 153/88 H 12/10/20 07:16 97.7 F 70 18 160/94 H 97 12/10/20 04:00 97.7 F 69 18 148/100 H 95 12/10/20 00:00 97.8 F 68 18 98 Weight Admit Weight 192 lb 0.362 oz Weight 192 lb 0.362 oz Physical Exam: The patient was seen and examined on the day of discharge. General patient is currently alert and awake no acute distress Head normocephalic atraumatic Neck supple no JVD no meningeal signs of irritation Lungs clear to auscultation without any rhonchi or rales Cardiac S1-S2 regular, no murmur no gallop no rub Abdomen soft, bowel sound present, nontender nondistended no organomegaly no mass Extremity right lower extremity cellulitis and wound significantly improving, Neurologic nonfocal examination Problem - Problem (1) Cellulitis of right lower extremity Code(s): L03.115 - CELLULITIS OF RIGHT LOWER LIMB Status: Acute (2) Alcohol withdrawal syndrome Code(s): F10.239 - ALCOHOL DEPENDENCE WITH WITHDRAWAL, UNSPECIFIED Status: Resolved Qualifiers: Complication of substance-induced condition: uncomplicated Qualified Code(s): F10.230 - Alcohol dependence with withdrawal, uncomplicated (3) Seizure Code(s): R56.9 - UNSPECIFIED CONVULSIONS Status: Resolved (4) Alcohol abuse Code(s): F10.10 - ALCOHOL ABUSE, UNCOMPLICATED Status: Chronic (5) Hypertension Code(s): I10 - ESSENTIAL (PRIMARY) HYPERTENSION Status: Chronic Qualifiers: Hypertension type: essential hypertension Qualified Code(s): I10 - Essential (primary) hypertension (6) Varicose vein of leg Code(s): I83.90 - ASYMPTOMATIC VARICOSE VEINS OF UNSPECIFIED LOWER EXTREMITY Status: Acute Qualifiers: Varicose vein complication: ulcer Laterality: right Lower extremity ulceration location: other part of lower leg Non-pressure ulcer stage: with fat layer exposed Qualified Code(s): I83.018 - Varicose veins of right lower extremity with ulcer other part of lower leg; L97.812 - Non-pressure chronic ulcer of other part of right lower leg with fat layer exposed Plan - Discharge Medications Prescriptions: Cephalexin 500 mg PO Q6HR #30 capsule Folic Acid [Folvite] 1 mg PO DAILY #30 tab Amlodipine [Norvasc] 10 mg PO DAILY #30 tab Thiamine 100 mg PO DAILY #30 tab Cyanocobalamin (Vitamin B-12) [Vitamin B-12] 1,000 mcg PO DAILY #30 tab Home Medications: Medication Instructions Recorded Confirmed Type Lisinopril 20 mg PO DAILY 12/06/20 12/06/20 History Amlodipine [Norvasc] 10 mg PO DAILY #30 tab 12/09/20 Rx Cephalexin 500 mg PO Q6HR #30 capsule 12/09/20 Rx Cyanocobalamin (Vitamin B-12) 1,000 mcg PO DAILY #30 tab 12/09/20 Rx [Vitamin B-12] Folic Acid [Folvite] 1 mg PO DAILY #30 tab 12/09/20 Rx Thiamine 100 mg PO DAILY #30 tab 12/09/20 Rx Allergies: No Known Drug Allergies Allergy (Verified 12/07/20 05:34) - Discharge Instructions Activity:: Activity as Tolerated Nourishment:: Regular Diet Therapies:: Not Applicable Equipment/Supplies:: Not Applicable IV Therapy:: Not Applicable - Follow up Plan Referrals: PROVIDER,NO PCP [Primary Care Provider] - Disposition: HOME Quality - Care Measures CORE MEASURES:: N/A
--- NOTE | 2020-12-10 12:23 | PDOC.HOSPP ---
- Subjective Encounter Date: 12/10/20 Encounter Time: 11:40 Subjective: Patient seen and examined. No new complaints. No overnight events - Objective Vital Signs & Weight: Vital Signs (12 hours) Temp Pulse Resp BP BP BP Pulse Ox 12/10/20 09:10 70 153/88 H 12/10/20 07:16 97.7 F 70 18 160/94 H 97 12/10/20 04:00 97.7 F 69 18 148/100 H 95 Weight Admit Weight 192 lb 0.362 oz Weight 192 lb 0.362 oz I&O: 12/09/20 12/10/20 12/11/20 06:59 06:59 06:59 Intake Total 3050 2475 Balance 3050 2475 Result Diagrams: 12/07/20 04:14 12/07/20 04:14 EKG Reviewed by me: Yes Hospitalist ROS - Review of Systems ENT: denies: ear pain, ear discharge, nose pain, nose discharge, nose congestion, mouth pain, mouth swelling, throat pain, throat swelling, other Respiratory: denies: cough, dry, shortness of breath, hemoptysis, SOB with excertion, pleuritic pain, sputum, wheezing, other Cardiovascular: denies: chest pain, palpitations, orthopnea, paroxysmal noc. dyspnea, edema, light headedness, other Gastrointestinal: denies: nausea, vomiting, abdominal pain, diarrhea, constipati on, melena, hematochezia, other Genitourinary: denies: dysuria, frequency, incontinence, hematuria, retention, other Musculoskeletal: denies: neck pain, shoulder pain, arm pain, back pain, hand pain, leg pain, foot pain, other - Medication Medications: Active Medications Generic Name Dose Route Start Last Admin Trade Name Freq PRN Reason Stop Dose Admin Hydrocodone Bitart/Acetaminophen 1 tab 12/06/20 08:08 12/09/20 17:42 Hydrocodone/Acetaminophen 5/325 Mg Tablet PO 1 tab Q4H PRN Administration Moderate Pain (4-6) Amlodipine Besylate 10 mg 12/09/20 09:00 12/10/20 09:10 Amlodipine 10 Mg Tab PO 10 mg DAILY LARRY Administration Cyanocobalamin 1,000 mcg 12/06/20 09:00 12/10/20 09:10 Cyanocobalamin (Vitamin B-12) 1,000 Mcg Tab PO 1,000 mcg DAILY LARRY Administration Enoxaparin Sodium 40 mg 12/06/20 09:00 12/10/20 09:10 Enoxaparin Sodium 40 Mg/0.4 Ml Syringe SC 40 mg 0900 LARRY Administration Famotidine 20 mg 12/06/20 09:00 12/10/20 09:10 Famotidine 20 Mg Tab PO 20 mg BID LARRY Administration Folic Acid 1 mg 12/06/20 09:00 12/10/20 09:10 Folic Acid 1 Mg Tab PO 1 mg DAILY LARRY Administration Ceftriaxone Sodium 1 gm/ 100 mls @ 200 mls/hr 12/06/20 14:00 12/09/20 14:32 Sodium Chloride IVPB 100 mls Q24HR LARRY Administration Vancomycin HCl 1.75 gm/ Sodium 500 mls @ 250 mls/hr 12/06/20 18:00 12/10/20 06:54 Chloride IVPB 500 mls 0600,1800 LARRY Administration Iron/Minerals/Multivitamins 1 tab 12/06/20 09:00 12/10/20 09:10 Multivitamin W/ Minerals 1 Tab PO 1 tab DAILY LARRY Administration Lisinopril 20 mg 12/07/20 09:00 12/10/20 09:10 Lisinopril 20 Mg Tab PO 20 mg DAILY LARRY Administration Morphine Sulfate 2 mg 12/06/20 11:50 12/07/20 11:14 Morphine 2 Mg/Ml Vial SLOW IVP 2 mg Q4H PRN Administration Pain Nicotine 21 mg 12/06/20 09:00 12/10/20 09:10 Nicotine 21 Mg Patch TD 21 mg DAILY LARRY Administration Sodium Chloride 10 ml 12/06/20 09:00 12/10/20 09:12 Flush - Normal Saline 10 Ml Syringe IVF Not Given Q12HR [facility] Thiamine HCl 100 mg 12/06/20 09:00 12/10/20 09:10 Thiamine 100 Mg Tab PO 100 mg DAILY LARRY Administration Zolpidem Tartrate 5 mg 12/06/20 08:08 12/09/20 20:17 Zolpidem Tartrate 5 Mg Tab PO 5 mg HSPRN PRN Administration Insomnia - Exam General Appearance: NAD, awake alert Eye: PERRL, anicteric sclera ENT: normocephalic atraumatic, no oropharyngeal lesions Neck: supple, symmetric, no JVD Heart: RRR, no murmur, no gallops, no rubs Respiratory: no wheezes, no rales, no ronchi Gastrointestinal: soft, non-tender, non-distended, normal bowel sounds Extremities: no cyanosis, no clubbing Extremities - other findings: Cellulitis improving, varicose vein Skin: normal turgor, no lesions Neurological: no focal deficits Musculoskeletal: normal tone, normal strength Psychiatric: normal affect, normal behavior Hosp A/P (1) Cellulitis of right lower extremity Code(s): L03.115 - CELLULITIS OF RIGHT LOWER LIMB Status: Acute (2) Alcohol withdrawal syndrome Code(s): F10.239 - ALCOHOL DEPENDENCE WITH WITHDRAWAL, UNSPECIFIED Status: Resolved Qualifiers: Complication of substance-induced condition: uncomplicated Qualified Code(s): F10.230 - Alcohol dependence with withdrawal, uncomplicated (3) Seizure Code(s): R56.9 - UNSPECIFIED CONVULSIONS Status: Resolved (4) Alcohol abuse Code(s): F10.10 - ALCOHOL ABUSE, UNCOMPLICATED Status: Chronic (5) Hypertension Code(s): I10 - ESSENTIAL (PRIMARY) HYPERTENSION Status: Chronic Qualifiers: Hypertension type: essential hypertension Qualified Code(s): I10 - Essential (primary) hypertension (6) Varicose vein of leg Code(s): I83.90 - ASYMPTOMATIC VARICOSE VEINS OF UNSPECIFIED LOWER EXTREMITY Status: Acute Qualifiers: Varicose vein complication: ulcer Laterality: right Lower extremity ulceration location: other part of lower leg Non-pressure ulcer stage: with fat layer exposed Qualified Code(s): I83.018 - Varicose veins of right lower extremity with ulcer other part of lower leg; L97.812 - Non-pressure chronic ulcer of other part of right lower leg with fat layer exposed - Plan old records reviewed/req, continue antibiotics Based on culture result we will consider changing to Keflex 500 mg p.o. every 6 hourly for 7 more days, Patient is overall medically stable, Patient is medically stable Please see my discharge summary
[2020-12-10] MEDS: cefTRIAXone\\ROCEPHIN 1 GM in Sodium Chloride 0.9% 100 ML IVPB SCH (14:14)
[2020-12-10] MEDS: Zolpidem Tartrate 5 MG TAB PO PRN (23:38)
[2020-12-11 05:27] LABS: Vancomycin, Trough 24.9 ug/mL
[2020-12-11] MEDS: Vancomycin HCl 1.75 GM in Sodium Chloride 0.9% 500 ML IVPB SCH (05:27)
[2020-12-11] MEDS: Cyanocobalamin (Vitamin B-12) 1,000 MCG TAB PO SCH (09:48)
[2020-12-11] MEDS: Multivitamin W/ Minerals 1 TAB PO SCH (09:48)
[2020-12-11] MEDS: Amlodipine 10 MG TAB PO SCH (09:49)
[2020-12-11] MEDS: Famotidine 20 MG TAB PO SCH ×2 (09:49→21:18)
[2020-12-11] MEDS: Folic Acid 1 MG TAB PO SCH (09:53)
[2020-12-11] MEDS: Lisinopril 20 MG TAB PO SCH (09:53)
[2020-12-11] MEDS: Enoxaparin Sodium 40 MG/0.4 ML SYRINGE SC SCH (09:53)
[2020-12-11] MEDS: Nicotine 21 MG PATCH TD SCH (09:54)
[2020-12-11] MEDS: Thiamine 100 MG TAB PO SCH (10:00)
--- NOTE | 2020-12-11 12:27 | PDOC.HOSPP ---
- Subjective Encounter Date: 12/11/20 Encounter Time: 08:30 Subjective: Patient seen and examined. No new complaints. No overnight events - Objective Vital Signs & Weight: Vital Signs (12 hours) Temp Pulse Resp BP BP Pulse Ox 12/11/20 11:00 98.4 F 93 18 139/97 H 99 12/11/20 10:07 73 144/101 H 12/11/20 09:53 166/109 H 12/11/20 09:49 73 166/109 H 12/11/20 07:03 97.7 F 73 18 166/109 H 98 12/11/20 03:04 97.5 F L 61 16 158/91 H 98 Weight Admit Weight 192 lb 0.362 oz Weight 192 lb 0.362 oz I&O: 12/10/20 12/11/20 12/12/20 06:59 06:59 06:59 Intake Total 2475 900 Balance 2475 900 Result Diagrams: 12/07/20 04:14 12/07/20 04:14 Hospitalist ROS - Review of Systems ENT: denies: ear pain, ear discharge, nose pain, nose discharge, nose congesti on, mouth pain, mouth swelling, throat pain, throat swelling, other Respiratory: denies: cough, dry, shortness of breath, hemoptysis, SOB with excertion, pleuritic pain, sputum, wheezing, other Cardiovascular: denies: chest pain, palpitations, orthopnea, paroxysmal noc. dyspnea, edema, light headedness, other Gastrointestinal: denies: nausea, vomiting, abdominal pain, diarrhea, constipation, melena, hematochezia, other Genitourinary: denies: dysuria, frequency, incontinence, hematuria, retention, other Musculoskeletal: denies: neck pain, shoulder pain, arm pain, back pain, hand pain, leg pain, foot pain, other - Medication Medications: Active Medications Generic Name Dose Route Start Last Admin Trade Name Freq PRN Reason Stop Dose Admin Hydrocodone Bitart/Acetaminophen 1 tab 12/06/20 08:08 12/09/20 17:42 Hydrocodone/Acetaminophen 5/325 Mg Tablet PO 1 tab Q4H PRN Administration Moderate Pain (4-6) Amlodipine Besylate 10 mg 12/09/20 09:00 12/11/20 09:49 Amlodipine 10 Mg Tab PO 10 mg DAILY LARRY Administration Cyanocobalamin 1,000 mcg 12/06/20 09:00 12/11/20 09:48 Cyanocobalamin (Vitamin B-12) 1,000 Mcg Tab PO 1,000 mcg DAILY LARRY Administration Enoxaparin Sodium 40 mg 12/06/20 09:00 12/11/20 09:53 Enoxaparin Sodium 40 Mg/0.4 Ml Syringe SC 40 mg 0900 LARRY Administration Famotidine 20 mg 12/06/20 09:00 12/11/20 09:49 Famotidine 20 Mg Tab PO 20 mg BID LARRY Administration Folic Acid 1 mg 12/06/20 09:00 12/11/20 09:53 Folic Acid 1 Mg Tab PO 1 mg DAILY LARRY Administration Ceftriaxone Sodium 1 gm/ 100 mls @ 200 mls/hr 12/06/20 14:00 12/10/20 14:14 Sodium Chloride IVPB 100 mls Q24HR LARRY Administration Iron/Minerals/Multivitamins 1 tab 12/06/20 09:00 12/11/20 09:48 Multivitamin W/ Minerals 1 Tab PO 1 tab DAILY LARRY Administration Lisinopril 20 mg 12/07/20 09:00 12/11/20 09:53 Lisinopril 20 Mg Tab PO 20 mg DAILY LARRY Administration Morphine Sulfate 2 mg 12/06/20 11:50 12/07/20 11:14 Morphine 2 Mg/Ml Vial SLOW IVP 2 mg Q4H PRN Administration Pain Nicotine 21 mg 12/06/20 09:00 12/11/20 09:54 Nicotine 21 Mg Patch TD 21 mg DAILY LARRY Administration Sodium Chloride 10 ml 12/06/20 09:00 12/11/20 09:55 Flush - Normal Saline 10 Ml Syringe IVF 10 ml Q12HR LARRY Administration Thiamine HCl 100 mg 12/06/20 09:00 12/11/20 10:00 Thiamine 100 Mg Tab PO 100 mg DAILY LARRY Administration Zolpidem Tartrate 5 mg 12/06/20 08:08 12/10/20 23:38 Zolpidem Tartrate 5 Mg Tab PO 5 mg HSPRN PRN Administration Insomnia - Exam General Appearance: NAD, awake alert Eye: PERRL, anicteric sclera ENT: normocephalic atraumatic, no oropharyngeal lesions Neck: supple, symmetric, no JVD Heart: RRR, no murmur, no gallops, no rubs Respiratory: no wheezes, no rales, no ronchi Gastrointestinal: soft, non-tender, non-distended, normal bowel sounds Extremities: no cyanosis, no clubbing, no edema Extremities - other findings: Right lower extremity cellulitis improving, Skin: normal turgor, no lesions Neurological: no focal deficits Musculoskeletal: normal tone, normal strength Psychiatric: normal affect, normal behavior Hosp A/P (1) Cellulitis of right lower extremity Code(s): L03.115 - CELLULITIS OF RIGHT LOWER LIMB Status: Acute (2) Alcohol withdrawal syndrome Code(s): F10.239 - ALCOHOL DEPENDENCE WITH WITHDRAWAL, UNSPECIFIED Status: Resolved Qualifiers: Complication of substance-induced condition: uncomplicated Qualified Code(s): F10.230 - Alcohol dependence with withdrawal, uncomplicated (3) Seizure Code(s): R56.9 - UNSPECIFIED CONVULSIONS Status: Resolved (4) Alcohol abuse Code(s): F10.10 - ALCOHOL ABUSE, UNCOMPLICATED Status: Chronic (5) Hypertension Code(s): I10 - ESSENTIAL (PRIMARY) HYPERTENSION Status: Chronic Qualifiers: Hypertension type: essential hypertension Qualified Code(s): I10 - Essential (primary) hypertension (6) Varicose vein of leg Code(s): I83.90 - ASYMPTOMATIC VARICOSE VEINS OF UNSPECIFIED LOWER EXTREMITY Status: Acute Qualifiers: Varicose vein complication: ulcer Laterality: right Lower extremity ulcer ation location: other part of lower leg Non-pressure ulcer stage: with fat layer exposed Qualified Code(s): I83.018 - Varicose veins of right lower extremity with ulcer other part of lower leg; L97.812 - Non-pressure chronic ulcer of other part of right lower leg with fat layer exposed - Plan old records reviewed/req, continue antibiotics, 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
[2020-12-11] MEDS: cefTRIAXone\\ROCEPHIN 1 GM in Sodium Chloride 0.9% 100 ML IVPB SCH ×2 (15:24→16:13)
[2020-12-11] MEDS: Cephalexin 250 MG CAP PO SCH ×2 (18:53→23:05)
[2020-12-11] MEDS: Zolpidem Tartrate 5 MG TAB PO PRN (23:06)
[2020-12-12] MEDS: Cephalexin 250 MG CAP PO SCH ×4 (05:14→23:44)
[2020-12-12] MEDS: Thiamine 100 MG TAB PO SCH (10:10)
[2020-12-12] MEDS: Amlodipine 10 MG TAB PO SCH (10:10)
[2020-12-12] MEDS: Famotidine 20 MG TAB PO SCH ×2 (10:10→20:44)
[2020-12-12] MEDS: Enoxaparin Sodium 40 MG/0.4 ML SYRINGE SC SCH (10:10)
[2020-12-12] MEDS: Multivitamin W/ Minerals 1 TAB PO SCH (10:10)
[2020-12-12] MEDS: Cyanocobalamin (Vitamin B-12) 1,000 MCG TAB PO SCH (10:10)
[2020-12-12] MEDS: Lisinopril 20 MG TAB PO SCH (10:10)
[2020-12-12] MEDS: Nicotine 21 MG PATCH TD SCH (10:11)
[2020-12-12] MEDS: Folic Acid 1 MG TAB PO SCH (10:11)
--- NOTE | 2020-12-12 17:52 | PDOC.HOSPP ---
- Subjective Encounter Date: 12/12/20 Encounter Time: 11:00 Subjective: Patient seen for follow-up regarding cellulitis. Denies any chest pain or shortness of breath. - Objective Vital Signs & Weight: Vital Signs (12 hours) Temp Pulse Resp BP BP Pulse Ox 12/12/20 15:24 97.9 F 91 18 134/80 98 12/12/20 10:45 97.9 F 100 18 125/88 97 12/12/20 10:10 72 145/94 H 12/12/20 08:00 98 12/12/20 07:47 97.6 F 72 18 166/114 H 98 Weight Admit Weight 192 lb 0.362 oz Weight 192 lb 0.362 oz I&O: 12/11/20 12/12/20 12/13/20 06:59 06:59 06:59 Intake Total 900 1920 Balance 900 1920 Result Diagrams: 12/07/20 04:14 12/07/20 04:14 Additional Labs: Labs and MAR reviewed by [place] Hospitalist ROS - Review of Systems Cardiovascular: denies: chest pain, palpitations, orthopnea, paroxysmal noc. dyspnea, edema, light headedness Gastrointestinal: denies: nausea, vomiting, abdominal pain, diarrhea, constipation, melena, hematochezia - Medication Medications: Active Medications Generic Name Dose Route Start Last Admin Trade Name Freq PRN Reason Stop Dose Admin Hydrocodone Bitart/Acetaminophen 1 tab 12/06/20 08:08 12/09/20 17:42 Hydrocodone/Acetaminophen 5/325 Mg Tablet PO 1 tab Q4H PRN Administration Moderate Pain (4-6) Amlodipine Besylate 10 mg 12/09/20 09:00 12/12/20 10:10 Amlodipine 10 Mg Tab PO 10 mg DAILY LARRY Administration Cephalexin 500 mg 12/11/20 18:00 12/12/20 17:27 Cephalexin 250 Mg Cap PO 500 mg Q6HR LARRY Administration Cyanocobalamin 1,000 mcg 12/06/20 09:00 12/12/20 10:10 Cyanocobalamin (Vitamin B-12) 1,000 Mcg Tab PO 1,000 mcg DAILY LARRY Administration Enoxaparin Sodium 40 mg 12/06/20 09:00 12/12/20 10:10 Enoxaparin Sodium 40 Mg/0.4 Ml Syringe SC 40 mg 0900 LARRY Administration Famotidine 20 mg 12/06/20 09:00 12/12/20 10:10 Famotidine 20 Mg Tab PO 20 mg BID LARRY Administration Folic Acid 1 mg 12/06/20 09:00 12/12/20 10:11 Folic Acid 1 Mg Tab PO 1 mg DAILY LARYR Administration Iron/Minerals/Multivitamins 1 tab 12/06/20 09:00 12/12/20 10:10 Multivitamin W/ Minerals 1 Tab PO 1 tab DAILY LARRY Administration Lisinopril 20 mg 12/07/20 09:00 12/12/20 10:10 Lisinopril 20 Mg Tab PO 20 mg DAILY LARRY Administration Morphine Sulfate 2 mg 12/06/20 11:50 12/07/20 11:14 Morphine 2 Mg/Ml Vial SLOW IVP 2 mg Q4H PRN Administration Pain Nicotine 21 mg 12/06/20 09:00 12/12/20 10:11 Nicotine 21 Mg Patch TD 21 mg DAILY LARRY Administration Sodium Chloride 10 ml 12/06/20 09:00 12/12/20 10:11 Flush - Normal Saline 10 Ml Syringe IVF Not Given Q12HR [facility] Thiamine HCl 100 mg 12/06/20 09:00 12/12/20 10:10 Thiamine 100 Mg Tab PO 100 mg DAILY LARRY Administration Zolpidem Tartrate 5 mg 12/06/20 08:08 12/11/20 23:06 Zolpidem Tartrate 5 Mg Tab PO 5 mg HSPRN PRN Administration Insomnia - Exam General Appearance: awake alert Eye: anicteric sclera ENT: moist mucosa Neck: supple Heart: RRR Respiratory: CTAB Gastrointestinal: soft, non-tender Skin - other findings: Right leg cellulitis Hosp A/P - Plan Hosp A/P (1) Cellulitis of right lower extremity Code(s): L03.115 - CELLULITIS OF RIGHT LOWER LIMB Status: Acute (2) Alcohol withdrawal syndrome Code(s): F10.239 - ALCOHOL DEPENDENCE WITH WITHDRAWAL, UNSPECIFIED Status: Resolved Qualifiers: Complication of substance-induced condition: uncomplicated Qualified Code(s): F10.230 - Alcohol dependence with withdrawal, uncomplicated (3) Seizure Code(s): R56.9 - UNSPECIFIED CONVULSIONS Status: Resolved (4) Alcohol abuse Code(s): F10.10 - ALCOHOL ABUSE, UNCOMPLICATED Status: Chronic (5) Hypertension Code(s): I10 - ESSENTIAL (PRIMARY) HYPERTENSION Status: Chronic Qualifiers: Hypertension type: essential hypertension Qualified Code(s): I10 - Essential (primary) hypertension (6) Varicose vein of leg Code(s): I83.90 - ASYMPTOMATIC VARICOSE VEINS OF UNSPECIFIED LOWER EXTREMITY Status: Acute Qualifiers: Varicose vein complication: ulcer Laterality: right Lower extremity ulceration location: other part of lower leg Non-pressure ulcer stage: with fat layer exposed Qualified Code(s): I83.018 - Varicose veins of right lower extremity with ulcer other part of lower leg; L97.812 - Non-pressure chronic ulcer of other part of right lower leg with fat layer exposed - Plan Continue Keflex. Patient is medically stable for discharge. field service manager trying to arrange for drug rehab in [place]. [facility] has been consulted for help with arranging for bus ticket.
[2020-12-12] MEDS: Zolpidem Tartrate 5 MG TAB PO PRN (23:44)
[2020-12-13] MEDS: Cephalexin 250 MG CAP PO SCH ×4 (05:20→23:14)
[2020-12-13] MEDS: Cyanocobalamin (Vitamin B-12) 1,000 MCG TAB PO SCH (07:45)
[2020-12-13] MEDS: Folic Acid 1 MG TAB PO SCH (07:45)
[2020-12-13] MEDS: Thiamine 100 MG TAB PO SCH (07:45)
[2020-12-13] MEDS: Multivitamin W/ Minerals 1 TAB PO SCH (07:45)
[2020-12-13] MEDS: Amlodipine 10 MG TAB PO SCH (07:45)
[2020-12-13] MEDS: Famotidine 20 MG TAB PO SCH ×2 (07:45→21:17)
[2020-12-13] MEDS: Lisinopril 20 MG TAB PO SCH (07:45)
[2020-12-13] MEDS: Enoxaparin Sodium 40 MG/0.4 ML SYRINGE SC SCH (07:45)
[2020-12-13] MEDS: Nicotine 21 MG PATCH TD SCH (07:46)
--- NOTE | 2020-12-13 18:21 | PDOC.HOSPP ---
- Subjective Encounter Date: 12/13/20 Encounter Time: 15:00 Subjective: Patient seen for follow-up regarding right lower extremity cellulitis. He denies any new complaints. - Objective Vital Signs & Weight: Vital Signs (12 hours) Temp Pulse Resp BP BP Pulse Ox 12/13/20 12:00 98.4 F 91 14 139/91 H 98 12/13/20 08:00 98 12/13/20 07:45 74 136/88 12/13/20 07:40 98.2 F 74 16 134/88 98 Weight Admit Weight 192 lb 0.362 oz Weight 192 lb 0.362 oz I&O: 12/12/20 12/13/20 12/14/20 06:59 06:59 06:59 Intake Total 1920 2160 Balance 1920 2160 Result Diagrams: 12/07/20 04:14 12/07/20 04:14 Additional Labs: I reviewed patient's labs and MAR Hospitalist ROS - Review of Systems Cardiovascular: denies: chest pain, palpitations, orthopnea, paroxysmal noc. dyspnea, edema, light headedness Gastrointestinal: denies: nausea, vomiting, abdominal pain, diarrhea, constipation, melena, hematochezia - Medication Medications: Active Medications Generic Name Dose Route Start Last Admin Trade Name Freq PRN Reason Stop Dose Admin Hydrocodone Bitart/Acetaminophen 1 tab 12/06/20 08:08 12/09/20 17:42 Hydrocodone/Acetaminophen 5/325 Mg Tablet PO 1 tab Q4H PRN Administration Moderate Pain (4-6) Amlodipine Besylate 10 mg 12/09/20 09:00 12/13/20 07:45 Amlodipine 10 Mg Tab PO 10 mg DAILY LARRY Administration Cephalexin 500 mg 12/11/20 18:00 12/13/20 18:09 Cephalexin 250 Mg Cap PO 500 mg Q6HR LARRY Administration Cyanocobalamin 1,000 mcg 12/06/20 09:00 12/13/20 07:45 Cyanocobalamin (Vitamin B-12) 1,000 Mcg Tab PO 1,000 mcg DAILY LARRY Administration Enoxaparin Sodium 40 mg 12/06/20 09:00 12/13/20 07:45 Enoxaparin Sodium 40 Mg/0.4 Ml Syringe SC 40 mg 0900 LARRY Administration Famotidine 20 mg 12/06/20 09:00 12/13/20 07:45 Famotidine 20 Mg Tab PO 20 mg BID LARRY Administration Folic Acid 1 mg 12/06/20 09:00 12/13/20 07:45 Folic Acid 1 Mg Tab PO 1 mg DAILY LARRY Administration Iron/Minerals/Multivitamins 1 tab 12/06/20 09:00 12/13/20 07:45 Multivitamin W/ Minerals 1 Tab PO 1 tab DAILY LARRY Administration Lisinopril 20 mg 12/07/20 09:00 12/13/20 07:45 Lisinopril 20 Mg Tab PO 20 mg DAILY LARRY Administration Morphine Sulfate 2 mg 12/06/20 11:50 12/07/20 11:14 Morphine 2 Mg/Ml Vial SLOW IVP 2 mg Q4H PRN Administration Pain Nicotine 21 mg 12/06/20 09:00 12/13/20 07:46 Nicotine 21 Mg Patch TD 21 mg DAILY LARRY Administration Sodium Chloride 10 ml 12/06/20 09:00 12/13/20 11:03 Flush - Normal Saline 10 Ml Syringe IVF Not Given Q12HR [facility] Thiamine HCl 100 mg 12/06/20 09:00 12/13/20 07:45 Thiamine 100 Mg Tab PO 100 mg DAILY LARRY Administration Zolpidem Tartrate 5 mg 12/06/20 08:08 12/12/20 23:44 Zolpidem Tartrate 5 Mg Tab PO 5 mg HSPRN PRN Administration Insomnia - Exam General Appearance: awake alert Eye: anicteric sclera ENT: moist mucosa Neck: supple Heart: RRR Respiratory: CTAB Gastrointestinal: soft, non-tender Skin: no rashes Musculoskeletal: no muscle wasting Psychiatric: normal affect, normal behavior Hosp A/P - Plan Hosp A/P (1) Cellulitis of right lower extremity Code(s): L03.115 - CELLULITIS OF RIGHT LOWER LIMB Status: Acute (2) Alcohol withdrawal syndrome Code(s): F10.239 - ALCOHOL DEPENDENCE WITH WITHDRAWAL, UNSPECIFIED Status: Resolved Qualifiers: Complication of substance-induced condition: uncomplicated Qualified Code(s): F10.230 - Alcohol dependence with withdrawal, uncomplicated (3) Seizure Code(s): R56.9 - UNSPECIFIED CONVULSIONS Status: Resolved (4) Alcohol abuse Code(s): F10.10 - ALCOHOL ABUSE, UNCOMPLICATED Status: Chronic (5) Hypertension Code(s): I10 - ESSENTIAL (PRIMARY) HYPERTENSION Status: Chronic Qualifiers: Hypertension type: essential hypertension Qualified Code(s): I10 - Essential (primary) hypertension (6) Varicose vein of leg Code(s): I83.90 - ASYMPTOMATIC VARICOSE VEINS OF UNSPECIFIED LOWER EXTREMITY Status: Acute Qualifiers: Varicose vein complication: ulcer Laterality: right Lower extremity ulceration location: other part of lower leg Non-pressure ulcer stage: with fat layer exposed Qualified Code(s): I83.018 - Varicose veins of right lower extremity with ulcer other part of lower leg; L97.812 - Non-pressure chronic ulcer of other part of right lower leg with fat layer exposed - Plan Patient is on Keflex. Patient is medically stable for discharge. customer operations manager trying to arrange for drug rehab in [place]. [facility] has been consulted for help with arranging for bus ticket. Likely discharge in 24 hours.
[2020-12-13] MEDS: Zolpidem Tartrate 5 MG TAB PO PRN (23:13)
[2020-12-14 05:06] VITALS: TEMP 97.7
[2020-12-14] MEDS: Cephalexin 250 MG CAP PO SCH ×2 (05:53→12:40)
[2020-12-14] MEDS: Folic Acid 1 MG TAB PO SCH (07:47)
[2020-12-14] MEDS: Lisinopril 20 MG TAB PO SCH (07:47)
[2020-12-14] MEDS: Cyanocobalamin (Vitamin B-12) 1,000 MCG TAB PO SCH (07:47)
[2020-12-14] MEDS: Famotidine 20 MG TAB PO SCH (07:47)
[2020-12-14] MEDS: Amlodipine 10 MG TAB PO SCH (07:47)
[2020-12-14] MEDS: Thiamine 100 MG TAB PO SCH (07:47)
[2020-12-14 07:48] VITALS: BP 159/95
[2020-12-14] MEDS: Enoxaparin Sodium 40 MG/0.4 ML SYRINGE SC SCH (07:48)
[2020-12-14] MEDS: Nicotine 21 MG PATCH TD SCH (07:48)
[2020-12-14] MEDS: Multivitamin W/ Minerals 1 TAB PO SCH (12:41)
--- NOTE | 2020-12-14 15:49 | PDOC.DS.DS ---
Provider - Provider Date of Admission: 12/06/20 05:53 Date of Discharge: 12/14/20 Admitting Provider: Rasheed Beck MD Primary Care Physician: NO PCP PROVIDER Course - Hospital Course Hospital Course: Discharge diagnosis: 1. Right lower extremity cellulitis 2. Right lower extremity wound 3. Alcohol abuse 4. Hypoalbuminemia 5. COVID-19 PCR test negative 6. Alcohol induced seizure Hospital course: Patient is a pleasant 50-year-old gentleman who was admitted to the hospital on December 06, 2020 for right lower extremity cellulitis as well as alcohol induced seizure. He was seen by neurology service. He was started on alcohol withdr awal protocol. Electroencephalogram was normal. Medications were not recommended for seizure. Right lower extremity wound culture grew Staph aureus that was resistant to amoxicillin and piperacillin but was otherwise pansensitive. He is being discharged on oral antibiotics. He was also seen by wound care service during his hospitalization. Patient wished to enroll in alcohol rehab. Case management worked with patient and he was able to get into alcohol rehab program in [place]. Case management and [facility] working together to arrange for transportation at the time of this dictation. Many thanks for allowing me to participate in your patient's care. Please feel free to contact me with any questions or concerns. Discharge destination: Home Total amount of time spent coordinating this discharge: 33 minutes Resuscitation Status: 12/06/20 08:08 Resuscitation Status Routine Resuscitation Status: FULL: Full Resuscitation - Labs Lab Results: 12/07/20 04:14 12/07/20 04:14 Microbiology - Entire Visit 12/06/20 18:52 Leg - Right Leg Bacterial Culture - Final Staphylococcus aureus Beta-hemolytic strep group A - Physical Exam Vitals: Vital Signs (12 hours) Temp Pulse Resp BP BP BP BP 12/14/20 08:00 97.7 F 77 18 159/95 H 12/14/20 07:47 97.7 F 77 18 159/95 H 159/95 H 12/14/20 03:46 97.7 F 69 16 142/94 H Pulse Ox 12/14/20 08:00 96 12/14/20 07:47 96 12/14/20 03:46 97 Weight Admit Weight 192 lb 0.362 oz Weight 192 lb 0.362 oz Physical Exam: The patient was seen and examined on the day of discharge. Patient denies chest pain or shortness of breath. Vital signs are stable. S1 and S2 are heard. Lungs are clear to auscultation bilaterally. Plan - Discharge Medications Prescriptions: Cephalexin 500 mg PO Q6HR #30 capsule Melatonin 3 mg PO HS PRN #30 tablet PRN Reason: Insomnia Amlodipine [Norvasc] 10 mg PO DAILY #30 tab Thiamine 100 mg PO DAILY #30 tab Home Medications: Medication Instructions Recorded Confirmed Type Lisinopril 20 mg PO DAILY 12/06/20 12/06/20 History Amlodipine [Norvasc] 10 mg PO DAILY #30 tab 12/09/20 Rx Cephalexin 500 mg PO Q6HR #30 capsule 12/09/20 Rx Thiamine 100 mg PO DAILY #30 tab 12/09/20 Rx Melatonin 3 mg PO HS PRN #30 tablet 12/14/20 Rx Nicotine [Nicoderm CQ] 21 mg TD DAILY patch 12/14/20 Rx Allergies: No Known Drug Allergies Allergy (Verified 12/07/20 05:34) - Discharge Instructions Activity:: Activity as Tolerated Nourishment:: Regular Diet Therapies:: Not Applicable Equipment/Supplies:: Not Applicable IV Therapy:: Not Applicable - Follow up Plan Referrals: PROVIDER,NO PCP [Primary Care Provider] - Disposition: HOME Quality - Care Measures CORE MEASURES:: N/A
== END 2020-12-14 16:05 | disposition home or self-care (01) | DRG 603 ==
LOC: ERS 02:58 → ERHOLD 05:53 → 2NO 15:29 → SJJU 12-07 11:27
PROVIDERS: ADMIT Internal Medicine; ATTEND Internal Medicine
DX: L03.115 Cellulitis of right lower limb (principal); F10.139 Alcohol abuse with withdrawal, unspecified; L97.812 Non-pressure chronic ulcer of other part of right lower leg with fat layer exposed; Z20.822 Contact with and (suspected) exposure to COVID-19; I10 Essential (primary) hypertension; R56.9 Unspecified convulsions; I83.90 Asymptomatic varicose veins of unspecified lower extremity
CPT/HCPCS: 36415; 70450; 70551; 80053; 80202; 80306; 80307; 81001; 82550; 83735; 84146; 84443; 85025; 87070; 87077; 87186; 87205; 87635; 93005; 95712; 95819; 95957; 96365; 96366; 96375; J0696; J1650; J2060; J2270; J3370; J3411; J3490; J7030; J7042; U0003; U0005